=== PATIENT | male | born 1950 | race Caucasian/White ===

== ENCOUNTER 2017-10-26 17:25 | Inpatient (IN) | payer MEDICARE, OTHER ==
[~2017-10-26] VITALS: Ht 167.6 cm; Wt 86.0 kg
--- NOTE | 2017-10-26 17:51 | PD ---
HPI Chief Complaint: Chu Act Time Seen by Provider: 17:49 Travel History International Travel<30 days: No Contact w/Intl Traveler<30days: No History of Present Illness HPI 67-year-old male brought in from [facility] under the Chu act for refusing to eat and aggressive behavior towards staff and other residents. Patient has history of chronic low back pain, history of dysphasia, aphasia, atrial fibrillation, COPD, and major depressive disorder. Patient has been refusing to take his medications, and threatening to harm other residents and staff. He is attempted to hit the staff but they duck out of reach. His roommate has been fearful due to continued threats of harm, and he has thrown trays in place at the staff. Patient is unwilling to talk upon my exam. He has no known drug allergies. PFSH Past Medical History Arthritis: Yes Heart Rhythm Problems: No Cardiac Catheterization: No Cardiovascular Problems: No High Cholesterol: No Chest Pain: Yes (c/o suprasternal CP, MD notified) Congestive Heart Failure: No Diabetes: No Diminished Hearing: No Hypertension: Yes Myocardial Infarction: No Past Surgical History Appendectomy: Yes Coronary Artery Bypass Graft: No Social History Alcohol Use: Yes (IN REHAB) Tobacco Use: No Substance Use: No Allergies-Medications (Allergen,Severity, Reaction): Coded Allergies: No Known Allergies (Verified Adverse Reaction, Unknown, 10/26/17) Reported Meds & Prescriptions Reported Meds & Active Scripts Active Reported Milk of Magnesia Liq (Magnesium Hydroxide) 400 Mg/5 Ml Susp 30 Ml PO HS PRN Enema Disposable (Sodium Phosphates) 19 Gram-7 Gram/118 Ml Kelly 1 Applic RI PRN Dulcolax Supp (Bisacodyl) 10 Mg Supp 10 Mg RECTAL IN AM PRN Citroma Liq (Magnesium Citrate) 300 Ml Liq 296 Ml PO IN AM PRN Tylenol (Acetaminophen) 325 Mg Tab 650 Mg PO Q4H PRN Review of Systems ROS Limitations: Uncooperative, Refused, Combative Except as stated in HPI: all other systems reviewed are Neg Physical Exam Exam Limitations: Uncooperative, Combative Narrative GENERAL: Patient appears somewhat catatonic and refuses to speak or move. SKIN: Warm and dry. No obvious signs of trauma. HEAD: Atraumatic. Normocephalic. EYES: Pupils equal and round. No scleral icterus. No injection or drainage. ENT: No nasal bleeding or discharge. Mucous membranes pink and moist. Pharynx is clear. NECK: Trachea midline. CARDIOVASCULAR: Regular rate and rhythm. RESPIRATORY: No accessory muscle use. Clear to auscultation. Breath sounds equal bilaterally. MUSCULOSKELETAL: Extremities without clubbing, cyanosis, or edema. No obvious deformities. NEUROLOGICAL: Awake. No obvious cranial nerve deficits. Motor grossly within normal limits. Five out of 5 muscle strength in the arms and legs. Normal speech. PSYCHIATRIC: Unable to assess. Data Data Last Documented VS Vital Signs Date Time Temp Pulse Resp B/P (MAP) Pulse Ox O2 Delivery O2 Flow Rate FiO2 10/26/17 18:03 98.0 117 22 117/67 (84) 96 Orders Orders Complete Blood Count With Diff (10/26/17 18:06) Comprehensive Metabolic Panel (10/26/17 18:06) Thyroid Stimulating Hormone (10/26/17 18:06) Urinalysis - C+S If Indicated (10/26/17 18:06) Psych Screen (10/26/17 18:06) Haloperidol Inj (Haldol Inj) (10/26/17 18:15) Lorazepam Inj (Ativan Inj) (10/26/17 18:15) Drug Screen, Random Urine (10/26/17 18:06) Alcohol (Ethanol) (10/26/17 18:06) Diphenhydramine Inj (Benadryl Inj) (10/26/17 18:15) MDM Medical Decision Making Medical Screen Exam Complete: Yes Emergency Medical Condition: Yes Medical Record Reviewed: Yes Differential Diagnosis Chu act. Psychosis. Mood disorder. Narrative Course Patient appears medically stable at time of exam. Psychiatric labs ordered per protocol. Due to the patient's threatening nature and unwillingness to cooperate, medications are given including 1 mg lorazepam IM, 5 mg Haldol IM, and 50 mg diphenhydramine IM. Psychiatric screen is ordered. Condition: Stable Geovanny Murphy Oct 26, 2017 17:51
[2017-10-26 18:03] VITALS: BP 117/67; PULSE 117; RESP 22; TEMP 98; O2SAT 96
[2017-10-26] MEDS ORDERED: HALOPERIDOL LACTATE 5 MG/ML AMP IM ONE (18:15)
[2017-10-26] MEDS ORDERED: LORazepam 2 MG/ML VIAL IM ONE (18:15)
[2017-10-26] MEDS ORDERED: diphenhydrAMINE HCL 50 MG/ML VIAL IM ONE (18:15)
[2017-10-26] MEDS ORDERED: DULC10SU3 RECTAL (18:27)
[2017-10-26] MEDS ORDERED: CITRSOL3 PO (18:27)
[2017-10-26] MEDS ORDERED: TYLE325T PO (18:27)
[2017-10-26] MEDS ORDERED: MILKSUS PO (18:27)
[2017-10-26] MEDS ORDERED: ENEMENE5 PR (18:27)
[2017-10-26 19:09] LABS: AUTOMATED NEUTROPHIL # 4.8 TH/MM3 (1.8-7.7); BASOPHIL # 0.1 TH/MM3 (0-0.2); BASOPHIL % 0.8 % (0.0-2.0); EOSINOPHIL # 0.2 TH/MM3 (0-0.4); EOSINOPHIL % 2.4 % (0.0-4.0); HEMATOCRIT 49.3 % (39.0-51.0); HEMOGLOBIN 16.8 GM/DL (13.0-17.0); LYMPH % 30.1 % (9.0-44.0); LYMPHOCYTE # 2.7 TH/MM3 (1.0-4.8); MEAN CELL VOLUME 84.8 FL (80.0-100.0); MEAN CORPUSCULAR HEMOGLOBIN 28.8 PG (27.0-34.0); MEAN PLATELET VOLUME 10.7 FL (7.0-11.0); MONO % 12.5 % (0.0-8.0); MONOCYTE # 1.1 TH/MM3 (0-0.9); NEUT % 54.2 % (16.0-70.0); PLATELET COUNT 188 TH/MM3 (150-450); RED BLOOD COUNT 5.82 MIL/MM3 (4.50-5.90); WHITE BLOOD COUNT 8.9 TH/MM3 (4.0-11.0)
[2017-10-26 19:33] LABS: ALBUMIN 4.1 GM/DL (3.4-5.0); ALT (GPT) 11 U/L (12-78); AST (GOT) 12 U/L (15-37); BICARBONATE 21.7 MEQ/L (21.0-32.0); BLOOD UREA NITROGEN 14 MG/DL (7-18); CALCIUM 9.5 MG/DL (8.5-10.1); CHLORIDE 108 MEQ/L (98-107); CREATININE 0.81 MG/DL (0.60-1.30); GLOMERULAR FILTRATION RATE 95 ML/MIN (>89); GLUCOSE,RANDOM 75 MG/DL (74-106); SODIUM (NA) 140 MEQ/L (136-145)
[2017-10-26 19:43] LABS: ALKALINE PHOSPHATASE 111 U/L (45-117); TOTAL BILIRUBIN ADULT 0.7 MG/DL (0.2-1.0); TOTAL PROTEIN 7.6 GM/DL (6.4-8.2)
[2017-10-26 21:42] VITALS: BP 135/83; PULSE 67; RESP 18; TEMP 98.2; O2SAT 99
[2017-10-27 03:30] VITALS: BP_SYST 110; BP_SYST 121; BP_DIAS 72; BP_DIAS 78; PULSE 50; PULSE 70; RESP 18; TEMP 98.6; TEMP 99.1; O2SAT 100; O2SAT 98
[2017-10-27 06:33] LABS: BILIRUBIN, URINE NEG (NEG); BLOOD, URINE NEG (NEG); GLUCOSE,URINE NEG (NEG); KETONE, URINE TRACE mg/dL (NEG); MUCUS URINE FEW /lpf (OCC); NITRITE,URINE NEG (NEG); PH, URINE 5.5 (5.0-8.5); SQUAMOUS EPITHELIAL CELL URINE <1 /hpf (0-5); URINE COLOR YELLOW (YELLW/STRAW); URINE LEUKOCYTE ESTERASE NEG (NEG)
[2017-10-27 06:38] VITALS: BP 112/77; PULSE 95; RESP 17; TEMP 98.1; O2SAT 95
[2017-10-27] MEDS ORDERED: ALUMINUM/MAGNESIUM/SIMETH 30 ML CUP PO PRN (07:15)
[2017-10-27] MEDS ORDERED: LORazepam 1 MG TAB PO PRN (07:15)
[2017-10-27] MEDS ORDERED: LORazepam 2 MG/ML VIAL IM PRN ×2 (07:15)
[2017-10-27] MEDS ORDERED: MAGNESIUM HYDROXIDE SUSP 30 ML CUP PO PRN ×2 (07:15)
[2017-10-27] MEDS ORDERED: LORazepam 0.5 MG TAB PO PRN (07:15)
[2017-10-27] MEDS ORDERED: ACETAMINOPHEN 325 MG TAB PO PRN ×2 (07:15)
[2017-10-27] MEDS: NICOTINE 21 MG/24 HR PATCH T-DERMAL SCH (09:00)
[2017-10-27 11:09] VITALS: BP 129/84; PULSE 96; RESP 18; TEMP 97.9; O2SAT 96
[2017-10-27 15:25] VITALS: BP 129/58; PULSE 83; TEMP 98.4; O2SAT 97
[2017-10-28 05:20] VITALS: BP 135/79; PULSE 72; RESP 17; TEMP 97.9; O2SAT 99
[2017-10-28] MEDS: REMOVE OLD PATCH T-DERMAL SCH ×2 (08:33→08:34)
[2017-10-28] MEDS: NICOTINE 21 MG/24 HR PATCH T-DERMAL SCH (08:46)
--- NOTE | 2017-10-28 11:39 | MB ---
cc: Rgoe Meadows MD DATE OF CONSULT: CHIEF COMPLAINT: Medical management. HISTORY OF PRESENT ILLNESS: The patient is a 67-year-old male. I see him as an outpatient at [facility]. I was called by the facility two days ago as the patient was agitated and psychotic. He was trying to hit staff and threatening to the residents as well. They asked me to Chu Act the patient and I was in the process of doing so; however, the patient's behaviors escalated and law enforcement was called and then he was transported to [facility]. The patient here has not been cooperative. The staff reports that he has been very rude but he apparently has not become physical here per their reports or from what I can find in the chart. Of note, the patient had been on hospice there at the nursing facility. PAST MEDICAL HISTORY: 1. Chronic low back pain. 2. Atrial fibrillation. 3. Aphasia. 4. COPD. 5. Major depressive disorder. PAST SURGICAL HISTORY: Appendectomy. FAMILY HISTORY: Hypertension in mother and father, otherwise no other family medical history of significance that I can find. SOCIAL HISTORY: He lives in the long-term care side at [facility]. He was on active hospice until being transferred here. He smokes as much as he can there at the facility. There had been report of alcoholism; however, I have not been able to elicit history of substance abuse otherwise. ALLERGIES: NO KNOWN DRUG ALLERGIES. MEDICATIONS: At the [facility] - 1. Milk of magnesia p.r.n. 2. Enema p.r.n. 3. Dulcolax p.r.n. 4. Citroma. 5. Tylenol p.r.n. REVIEW OF SYSTEMS: He has been violent and threatening and here it appears he has not lashed out as of yet; however, after speaking with the staff, they are keeping a cautious distance. Negative 14-point review of systems otherwise. LABS: CBC normal. Creatinine 0.81, otherwise the CMP is normal. TSH 0.569. Urinalysis shows trace ketones. Toxicology otherwise negative for drug screen. PHYSICAL EXAMINATION: VITAL SIGNS: Temp 97.9, pulse 72, respirations 18, blood pressure 135/79, pulse ox 99% on room air. GENERAL: He is an alert male, sitting up. He is not responding to my questions purposefully. HEENT: No JVD. Normocephalic, atraumatic. CARDIOVASCULAR: Regular rate and rhythm. No murmurs, rubs, clicks or gallops. CHEST: Clear. ABDOMEN: Soft, nontender. EXTREMITIES: No edema. SKIN: Clear. NEURO: He is alert, however, will not answer further questions. Cranial nerves appear grossly intact. Strength is 3/5 in upper and lower extremities. ASSESSMENT: 1. Psychosis. 2. Atrial fibrillation. 3. Chronic obstructive pulmonary disease. 4. Active smoker. 5. Major depression. 6. Alcoholism. 7. Hypertension. PLAN: 1. Continue medications per Psychiatry which at this point are only as needed medications to control his psychosis. 2. Nicotine 21 mg patch. 3. BMP, A1C and lipid profile. 4. Disposition: Hopefully discharge back to [facility]. He had been on hospice and will likely reconsult them when he gets back to senior living. Thank you for the medical consultation. I will continue to follow him here and after he discharges as well. MD KARON Bach/RAMON/bobo , 10:21 AM , 10:59 AM
[2017-10-28] MEDS ORDERED: hydrOXYzine HCL 50 MG TAB PO PRN (16:45)
--- NOTE | 2017-10-28 17:12 | HHI.HP ---
Provisional Diagnosis Admission Date Oct 27, 2017 at 07:10 [place]. 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 Express and informed consent means consent voluntarily given in writing, by a competent person, after sufficient explanation and disclosure of the subject matter involved to enable the person to make a knowing and willful decision without any element of force, fraud, deceit, duress, or other form of constraint or coercion. This person is 18 years of age or older, is not now known to be incompetent to consent to treatment with a guardian advocate, and does not have a health care surrogate or proxy currently making medical treatment decisions. I have found this person to be one of the following: [] Competent to provide express and informed consent, as defined above, for voluntary admission to this facility and is competent to provide express and informed consent for treatment. He/she has the consistent capacity to make well reasoned, willful, and knowing decisions concerning his or her medical or mental health treatment. The person fully and consistently understands the purpose of the admission for examination/placement and is fully capable of personally exercising all rights assured under [place] Incompetent to provide express and informed consent to voluntary admission, and this is incompetent to provide express and informed consent to treatment. The person must be transferred to involuntary status and a petition for a guardian advocate filed with the Circuit Court. xxx[] Refusing to provide express and informed consent to voluntary admission but is competent to provide express and informed consent for treatment. The person must be discharged or transferred to involuntary status. Form shall be completed within 24 hours of a person's arrival at the receiving facility and filed in the clinical record of each person: 1. Admitted on a voluntary basis 2. Permitted to provide express and informed consent to his/her own treatment 3. Allowed to transfer from involuntary to voluntary status 4. Prior to permitting a person to consent to his or her own treatment after having been previously found incompetent to consent to treatment. History of Present Illness Capacity: Lacks Capacity HPI Patient is a 67-year-old white male who comes here under Chu act by the [employer] dated 10/26/17 at 5:30 PM that document reviewed essentially is stating at 5 PM officer responded to [address] (rehabilitation facility) the on duty nurse advised that Arnaud has been aggressive and verbally abusive toward all the staff members and is roommate. Arnaud is currently prescribed medications and has not been taking them accordingly Arnaud he has also been refusing to eat officer Giacomo believes without proper care or treatment by professional fissure will cause harm to himself or others. Patient seen screened in the ED antiestrogen negative bladder: Level negative. Of interest blood alcohol drawn around 2008 in our ED came back greater than 300. At the present time patient sitting quietly in his room nurse Madeleine present throughout session. Patient is a stockily built white male appears perhaps slightly younger than his stated age sitting, there with a somewhat perplexed look on his face. He is oriented to person disoriented to place time and situation. He acknowledges his memory issues. The vaguely nodular being somewhat upset at his custodial where is unable to identify the custodial. He does denies suicidality homicidality voices or visions. When asked about his alcohol use she tenderness mild and shrug his shoulders Marisol made vague agreement with past detoxes. Was unable to answer related to legal issues with drinking. At this time patient does meet criteria for acute inpatient psychiatric hospitalization of the Chu act I'll do first opinion request second opinion. I feel he does not of capacity thus I'll ask for healthcare surrogate and guardian advocate. We do have Dr. Abdiel brennan outpatient family practice physician consulting with us. Hopeless. Fairly short stay we can monitors his behaviors see if there is any dementia type sundowning that we can help address Review of Systems Constitutional: DENIES: Diaphoretic episodes, Fatigue, Fever, Weight gain, Weight loss, Chills, Dizziness, Change in appetite, Night Sweats Endocrine: DENIES: Heat/cold intolerance, Polydipsia, Polyuria, Polyphagia Eyes: DENIES: Blurred vision, Diplopia, Eye inflammation, Eye pain, Vision loss , Photosensitivity, Double Vision Ears, nose, mouth, throat: DENIES: Tinnitus, Hearing loss, Vertigo, Nasal discharge, Oral lesions, Throat pain, Hoarseness, Ear Pain, Running Nose, Epistaxis, Sinus Pain, Toothache, Odynophagia Respiratory: DENIES: Apneas, Cough, Snoring, Wheezing, Hemoptysis, Sputum production, Shortness of breath Cardiovascular: DENIES: Chest pain, Palpitations, Syncope, Dyspnea on Exertion , PND, Lower Extremity Edema, Orthopnea, Claudication Gastrointestinal: DENIES: Abdominal pain, Black stools, Bloody stools, Constipation, Diarrhea, Nausea, Vomiting, Difficulty Swallowing, Anorexia Genitourinary: DENIES: Sexual dysfunction, Urinary frequency, Urinary incontinence, Urgency, Hematuria, Dysuria, Nocturia, Penile Discharge, Testicular Pain, Testicular Swelling Musculoskeletal: DENIES: Joint pain, Muscle aches, Stiffness, Joint Swelling, Back pain, Neck pain Integumentary: DENIES: Abnormal pigmentation, Nail changes, Pruritus, Rash Hematologic/lymphatic: DENIES: Bruising, Lymphadenopathy Immunologic/allergic: DENIES: Eczema, Urticaria Neurologic: DENIES: Abnormal gait, Headache, Localized weakness, Paresthesias, Seizures, Speech Problems, Tremor, Poor Balance Psychiatric: COMPLAINS OF: Confusion, Agitation Past Psych History Psychological trauma history Moment this time Violence risk - others (6 mos) Patient quite aggressive verbally and intimidating towards other staff and residents at his assisted Violence risk - self (6 mos) Low to Moderate Substance Abuse History Drugs/Alcohol past 12 months Questionable Past Family Social History Coded Allergies: No Known Allergies (Verified Allergy, Unknown, 10/27/17) Reported Medications Magnesium Hydroxide Liq (Milk of Magnesia Liq) 400 Mg/5 Ml Susp, 30 ML PO HS Y for IF NO BM IN 3 DAYS, #1 BOTTLE 0 Refills 10/26/17 Sodium Phosphates (Enema Disposable) 19 Gram-7 Gram/118 Ml Kelly, 1 APPLIC VA Y for IF NO RESULTS 1 DAY AFTER SUPP 10/26/17 Bisacodyl Supp (Dulcolax Supp) 10 Mg Supp, 10 MG RECTAL IN AM Y for IF NO RESULTS FROM MILK OF MAG, #12 SUPP 0 Refills 10/26/17 Magnesium Citrate Liq (Citroma Liq) 300 Ml Liq, 296 ML PO IN AM Y for IF NO RESULTS FROM ENEMA 10/26/17 Acetaminophen (Tylenol) 325 Mg Tab, 650 MG PO Q4H Y for MILD PAIN/TEMP 100F OR ABOVE, TAB 0 Refills 10/26/17 Current Medications Medications (Trade) Dose Ordered Sig/Tyra Route Start Time Stop Time Status Last Admin (Tylenol) 650 mg Q4H PRN PO 10/27/17 07:15 (Milk Of Magnesia Liq) 30 ml HS PRN PO 10/27/17 07:15 (Ativan) 1 mg Q6H PRN PO 10/27/17 07:15 (Ativan Inj) 1 mg Q6H PRN IM 10/27/17 07:15 (Ativan) 0.5 mg Q12H PRN PO 10/27/17 07:15 (Ativan Inj) 0.5 mg Q12H PRN IM 10/27/17 07:15 (Tylenol) 650 mg Q4H PRN PO 10/27/17 07:15 (Milk Of Magnesia Liq) 30 ml DAILY PRN PO 10/27/17 07:15 (Mag-Al Plus Susp Liq) 30 ml Q6H PRN PO 10/27/17 07:15 (Habitrol 21 Mg Patch.24 Hr) 1 patch DAILY T-DERMAL 10/27/17 09:00 Miscellaneous Information 1 DAILY T-DERMAL 10/28/17 09:00 Miscellaneous Information 1 DAILY T-DERMAL 10/28/17 09:00 (Atarax) 50 mg Q6H PRN PO 10/28/17 16:45 UNV Family Psych History Unknown at this time Social History Patient lives in assisted Patient's Strengths (min. 2) Patient verbal labile access healthcare Physical Exam Patient seen screened in ED exam reviewed and agreed with. Patient sitting quietly in his room is in no acute distress, patient no respiratory distress, no complaints of abdominal pain. Patient moves all 4 extremities without difficulty Vital Signs Vital Signs Date Time Temp Pulse Resp B/P (MAP) Pulse Ox O2 Delivery O2 Flow Rate FiO2 10/28/17 05:20 97.9 72 17 135/79 (97) 99 10/27/17 06:38 Room Air I/O 10/28/17 10/28/17 10/29/17 08:00 16:00 00:00 Intake Total 0 ml 240 ml Balance 0 ml 240 ml Mental Status Examination Appearance: Disheveled Orientation: Person Motor Activity: Normal gait Speech: Pressured, Hesitant, Slow Language: Adequate Fund of Knowledge: Inadequate Attention and Concentration: Easily Distracted Memory: Impaired Mood: Sad, Other (restricted) Affect: Other (decreased range and intensity) Thought Process & Associations: Disorganized Thought Content: Other (disorganized) Hallucination Type: None (denies) Delusion Type: Paranoid (mildly) Suicidal Ideation: No Suicidal Plan: No Suicidal Intention: No Homicidal Ideation: No Homicidal Plan: No Homicidal Intention: No Insight: Poor Judgment: Poor Assessment & Plan Problem List: (1) Dementia associated with alcoholism ICD Codes: F10.27 - Alcohol dependence with alcohol-induced persisting dementia (2) DEMENTIA IN OTH DISEASES CLASSD ELSWHR W BEHAVIORAL DISTURB ICD Codes: F02.81 - DEMENTIA IN OTH DISEASES CLASSD ELSWHR W BEHAVIORAL DISTURB Assessment & Plan Estimated LOS: days James Camarena MD Oct 28, 2017 17:12
[2017-10-28 18:22] VITALS: BP 155/95; PULSE 79; RESP 18; TEMP 97.9; O2SAT 99
[2017-10-29 06:10] VITALS: BP 173/89; PULSE 62; RESP 17; TEMP 97.7; O2SAT 96
[2017-10-29] MEDS: REMOVE OLD PATCH T-DERMAL SCH ×2 (08:15)
[2017-10-29] MEDS: NICOTINE 21 MG/24 HR PATCH T-DERMAL SCH (08:15)
[2017-10-29 09:27] LABS: BICARBONATE 23.8 MEQ/L (21.0-32.0); BLOOD UREA NITROGEN 15 MG/DL (7-18); CALCIUM 8.5 MG/DL (8.5-10.1); CHLORIDE 106 MEQ/L (98-107); CHOLESTEROL 186 MG/DL (120-200); CHOLESTEROL/ HDL RATIO 4.49 RATIO; CREATININE 0.79 MG/DL (0.60-1.30); GLOMERULAR FILTRATION RATE 98 ML/MIN (>89); GLUCOSE,RANDOM 73 MG/DL (74-106); HDL CHOLESTEROL 41.4 MG/DL (40.0-60.0); LDL CHOLESTEROL 129 MG/DL (0-99); SODIUM (NA) 140 MEQ/L (136-145); TRIGLYCERIDES 76 MG/DL (42-150)
--- NOTE | 2017-10-29 10:34 | HHI.FPPN ---
Subjective Remarks NOT WANTING TO TALK MUCH D/W RN Objective Vitals Vital Signs Date Time Temp Pulse Resp B/P (MAP) Pulse Ox O2 Delivery O2 Flow Rate FiO2 10/29/17 06:10 97.7 62 17 173/89 (117) 96 10/28/17 18:22 97.9 79 18 155/95 (115) 99 I/O 10/28/17 10/28/17 10/28/17 10/29/17 10/29/17 10/29/17 07:00 15:00 23:00 07:00 15:00 23:00 Intake Total 0 ml 480 ml Balance 0 ml 480 ml Intake Oral 0 ml 480 ml # Voids 0 3 1 Result Diagram: 10/26/17 1900 10/29/17 0734 Objective Remarks GENERAL: SKIN: Warm and dry. HEAD: Atraumatic. Normocephalic. EYES: Pupils equal and round. No scleral icterus. No injection or drainage. ENT: No nasal bleeding or discharge. Mucous membranes pink and moist. NECK: Trachea midline. No JVD. CARDIOVASCULAR: Regular rate and rhythm. RESPIRATORY: No accessory muscle use. Clear to auscultation. Breath sounds equal bilaterally. GASTROINTESTINAL: Abdomen soft, non-tender, nondistended. Hepatic and splenic margins not palpable. MUSCULOSKELETAL: Extremities without clubbing, cyanosis, or edema. No obvious deformities. NEUROLOGICAL: Awake and alert. No obvious cranial nerve deficits. Motor grossly within normal limits. Five out of 5 muscle strength in the arms and legs. Normal speech. PSYCHIATRIC: Appropriate mood and affect; insight and judgment normal. Medications and IVs Current Medications Medications (Trade) Dose Ordered Sig/Tyra Route Start Time Stop Time Status Last Admin (Tylenol) 650 mg Q4H PRN PO 10/27/17 07:15 (Milk Of Magnesia Liq) 30 ml HS PRN PO 10/27/17 07:15 (Ativan) 1 mg Q6H PRN PO 10/27/17 07:15 Future Hold (Ativan Inj) 1 mg Q6H PRN IM 10/27/17 07:15 Future Hold (Ativan) 0.5 mg Q12H PRN PO 10/27/17 07:15 Future Hold (Ativan Inj) 0.5 mg Q12H PRN IM 10/27/17 07:15 Future Hold (Tylenol) 650 mg Q4H PRN PO 10/27/17 07:15 (Milk Of Magnesia Liq) 30 ml DAILY PRN PO 10/27/17 07:15 (Mag-Al Plus Susp Liq) 30 ml Q6H PRN PO 10/27/17 07:15 (Habitrol 21 Mg Patch.24 Hr) 1 patch DAILY T-DERMAL 10/27/17 09:00 Miscellaneous Information 1 DAILY T-DERMAL 10/28/17 09:00 Miscellaneous Information 1 DAILY T-DERMAL 10/28/17 09:00 (Atarax) 50 mg Q6H PRN PO 10/28/17 16:45 Future Hold A/P Assessment and Plan ASSESSMENT: 1. Psychosis. 2. Atrial fibrillation. 3. Chronic obstructive pulmonary disease. 4. Active smoker. 5. Major depression. 6. Alcoholism. 7. Hypertension. PLAN: -A1C PENDING -PRN CLONIDINE FOR HTN -PRN NEBS -Continue medications per Psychiatry which at this point are only as needed medications to control his psychosis. -Nicotine 21 mg patch. -Disposition: Hopefully discharge back to [facility]. He had been on hospice and will likely reconsult them when he gets back to [facility]. Thank you for the medical consultation. I will continue to follow him here and after he discharges as well. Roge Meadows MD Oct 29, 2017 10:34
[2017-10-29] MEDS ORDERED: cloNIDine HCL 0.1 MG TAB PO PRN (10:45)
[2017-10-29] MEDS ORDERED: RESP: ALBUTEROL CONC 2.5 MG/0.5 ML NEB NEB PRN (10:45)
--- NOTE | 2017-10-29 13:20 | HHI.PYPN ---
Subjective Remarks Patient seen in his room with floor staff, chart review, patient discussed with nurse. Patient remains diffusely confused to place situation and time, there is some underlying mild irritability vigilance with this. We'll add Seroquel 25 mg noon and 6 PM and 10 PM regimen Review of Systems Except as stated in HPI: all other systems reviewed are Neg Mental Status Examination Appearance: Disheveled Orientation: Person Motor Activity: Normal gait Speech: Pressured, Hesitant, Slow Language: Adequate Fund of Knowledge: Inadequate Attention and Concentration: Easily Distracted Memory: Impaired Mood: Sad, Other Affect: Other Thought Process & Associations: Disorganized Thought Content: Other Hallucination Type: None Delusion Type: Paranoid Suicidal Ideation: No Suicidal Plan: No Suicidal Intention: No Homicidal Ideation: No Homicidal Plan: No Homicidal Intention: No Insight: Poor Judgment: Poor Results Labs Test 10/29/17 07:34 Blood Urea Nitrogen 15 MG/DL Creatinine 0.79 MG/DL Random Glucose 73 MG/DL Calcium Level 8.5 MG/DL Sodium Level 140 MEQ/L Potassium Level 3.8 MEQ/L Chloride Level 106 MEQ/L Carbon Dioxide Level 23.8 MEQ/L Anion Gap 10 MEQ/L Estimat Glomerular Filtration Rate 98 ML/MIN Triglycerides Level 76 MG/DL Cholesterol Level 186 MG/DL LDL Cholesterol 129 MG/DL HDL Cholesterol 41.4 MG/DL Cholesterol/HDL Ratio 4.49 RATIO Vitals/IOs Vital Signs Date Time Temp Pulse Resp B/P (MAP) Pulse Ox O2 Delivery O2 Flow Rate FiO2 10/29/17 06:10 97.7 62 17 173/89 (117) 96 10/27/17 06:38 Room Air Assessment & Plan Problem List: (1) Dementia associated with alcoholism ICD Codes: F10.27 - Alcohol dependence with alcohol-induced persisting dementia (2) DEMENTIA IN OTH DISEASES CLASSD ELSWHR W BEHAVIORAL DISTURB ICD Codes: F02.81 - 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 Inpt. At this time patient would decompensated placed a lower level of care Discharge Planning To be determined James Camarena MD Oct 29, 2017 13:20
--- NOTE | 2017-10-29 13:29 | PD.PSY.CON ---
Provisional Diagnosis Admission Date Oct 27, 2017 at 07:10 [place]. Dementia associated with alcoholism F10.27 dementia associated with other problem FiO2.81 History of Present Illness Service Psychiatry Consult Requested By Psychiatry Reason for Consult Second opinion Primary Care Physician Roge Meadows MD HPI Patient is a 67-year-old white male who comes here under [place] act by the [place] [employer] dated 10/26/17 at 5:30 PM that document reviewed essentially is stating at 5 PM officer [facility] [address] (rehabilitation facility) the on duty nurse advised that Arnaud has been aggressive and verbally abusive toward all the staff members and is roommate. Arnaud is currently prescribed medications and has not been taking them accordingly Arnaud he has also been refusing to eat officer Giacomo believes without proper care or treatment by professional fissure will cause harm to himself or others. Patient seen screened in the ED antiestrogen negative bladder: Level negative. Of interest blood alcohol drawn around 2008 in our ED came back greater than 300. At the present time patient sitting quietly in his room nurse Madeleine present throughout session. Patient is a stockily built white male appears perhaps slightly younger than his stated age sitting, there with a somewhat perplexed look on his face. He is oriented to person disoriented to place time and situation. He acknowledges his memory issues. The vaguely nodular being somewhat upset at his custodial where is unable to identify the custodial. He does denies suicidality homicidality voices or visions. When asked about his alcohol use she tenderness mild and shrug his shoulders Marisol made vague agreement with past detoxes. Was unable to answer related to legal issues with drinking. At this time patient does meet criteria for acute inpatient psychiatric hospitalization of the [place] act I'll do first opinion request second opinion. I feel he does not of capacity thus I'll ask for healthcare surrogate and guardian advocate. We do have Dr. Abdiel brennan outpatient family practice physician consulting with us. Hopeless. Fairly short stay we can monitors his behaviors see if there is any dementia type sundowning that we can help address. On psychiatric evaluation wasn't completed today, the patient is irritable, poorly cooperative, he stated that he does want to talk anymore. Patient does not remember the reason his in the hospital. Patient is very disoriented, just oriented in person. Reports angry mood, he says that he doesn't want to be here. He denies suicidal and homicidal ideation, he denies visual and auditory hallucinations. Past Family Social History Coded Allergies: No Known Allergies (Verified Allergy, Unknown, 10/27/17) Reported Medications Magnesium Hydroxide Liq (Milk of Magnesia Liq) 400 Mg/5 Ml Susp, 30 ML PO HS Y for IF NO BM IN 3 DAYS, #1 BOTTLE 0 Refills 10/26/17 Sodium Phosphates (Enema Disposable) 19 Gram-7 Gram/118 Ml Kelly, 1 APPLIC [facility] Y for IF NO RESULTS 1 DAY AFTER SUPP 10/26/17 Bisacodyl Supp (Dulcolax Supp) 10 Mg Supp, 10 MG RECTAL IN AM Y for IF NO RESULTS FROM MILK OF MAG, #12 SUPP 0 Refills 10/26/17 Magnesium Citrate Liq (Citroma Liq) 300 Ml Liq, 296 ML PO IN AM Y for IF NO RESULTS FROM ENEMA 10/26/17 Acetaminophen (Tylenol) 325 Mg Tab, 650 MG PO Q4H Y for MILD PAIN/TEMP 100F OR ABOVE, TAB 0 Refills 10/26/17 Current Medications Medications (Trade) Dose Ordered Sig/Tyra Route Start Time Stop Time Status Last Admin (Tylenol) 650 mg Q4H PRN PO 10/27/17 07:15 (Milk Of Magnesia Liq) 30 ml HS PRN PO 10/27/17 07:15 (Ativan) 1 mg Q6H PRN PO 10/27/17 07:15 Future Hold (Ativan Inj) 1 mg Q6H PRN IM 10/27/17 07:15 Future Hold (Ativan) 0.5 mg Q12H PRN PO 10/27/17 07:15 Future Hold (Ativan Inj) 0.5 mg Q12H PRN IM 10/27/17 07:15 Future Hold (Tylenol) 650 mg Q4H PRN PO 10/27/17 07:15 (Milk Of Magnesia Liq) 30 ml DAILY PRN PO 10/27/17 07:15 (Mag-Al Plus Susp Liq) 30 ml Q6H PRN PO 10/27/17 07:15 (Habitrol 21 Mg Patch.24 Hr) 1 patch DAILY T-DERMAL 10/27/17 09:00 Miscellaneous Information 1 DAILY T-DERMAL 10/28/17 09:00 Miscellaneous Information 1 DAILY T-DERMAL 10/28/17 09:00 (Atarax) 50 mg Q6H PRN PO 10/28/17 16:45 Future Hold (Albuterol Concentrated Neb) 2.5 mg Q4HR NEB PRN NEB 10/29/17 10:45 (Catapres) 0.1 mg Q6H PRN PO 10/29/17 10:45 (SEROquel) 25 mg DAILY@1200,1600,2200 PO 10/29/17 16:00 Patient's Strengths (min. 2) Patient verbal labile access healthcare Physical Exam Vital Signs Vital Signs Date Time Temp Pulse Resp B/P (MAP) Pulse Ox O2 Delivery O2 Flow Rate FiO2 10/29/17 06:10 97.7 62 17 173/89 (117) 96 10/27/17 06:38 Room Air Lab Results Test 10/29/17 07:34 Blood Urea Nitrogen 15 MG/DL Creatinine 0.79 MG/DL Random Glucose 73 MG/DL Calcium Level 8.5 MG/DL Sodium Level 140 MEQ/L Potassium Level 3.8 MEQ/L Chloride Level 106 MEQ/L Carbon Dioxide Level 23.8 MEQ/L Anion Gap 10 MEQ/L Estimat Glomerular Filtration Rate 98 ML/MIN Triglycerides Level 76 MG/DL Cholesterol Level 186 MG/DL LDL Cholesterol 129 MG/DL HDL Cholesterol 41.4 MG/DL Cholesterol/HDL Ratio 4.49 RATIO Mental Status Examination Appearance: Disheveled Orientation: Person Motor Activity: Normal gait Speech: Pressured, Hesitant, Slow Language: Adequate Fund of Knowledge: Inadequate Attention and Concentration: Easily Distracted Memory: Impaired Mood: Sad, Other Affect: Other Thought Process & Associations: Disorganized Thought Content: Other Hallucination Type: None Delusion Type: Paranoid Suicidal Ideation: No Suicidal Plan: No Suicidal Intention: No Homicidal Ideation: No Homicidal Plan: No Homicidal Intention: No Insight: Poor Judgment: Poor Assessment & Plan Problem List: (1) Dementia associated with alcoholism ICD Codes: F10.27 - Alcohol dependence with alcohol-induced persisting dementia (2) DEMENTIA IN OTH DISEASES CLASSD ELSWHR W BEHAVIORAL DISTURB ICD Codes: F02.81 - DEMENTIA IN OTH DISEASES CLASSD ELSWHR W BEHAVIORAL DISTURB Assessment & Plan: I have seen and examined this patient, reviewed the documentation, I agree and concur with Dr. Camarena's assessment and plan. Assessment & Plan Estimated LOS: days Gian Hui MD Oct 29, 2017 13:29
[2017-10-29 16:18] LABS: HEMOGLOBIN A1C 5.8 % (4.3-6.0)
[2017-10-29 17:35] VITALS: BP 152/96; PULSE 80; RESP 17; TEMP 97.3; O2SAT 97
[2017-10-30 06:00] VITALS: BP 162/74; PULSE 54; RESP 18; TEMP 97.5; O2SAT 98
[2017-10-30] MEDS: NICOTINE 21 MG/24 HR PATCH T-DERMAL SCH (08:34)
[2017-10-30] MEDS: REMOVE OLD PATCH T-DERMAL SCH ×2 (08:35)
--- NOTE | 2017-10-30 10:46 | HHI.FPPN ---
Subjective Remarks AGITATED TODAY ANGRY D/W RN Objective Vitals Vital Signs Date Time Temp Pulse Resp B/P (MAP) Pulse Ox O2 Delivery O2 Flow Rate FiO2 10/30/17 06:00 97.5 54 18 162/74 (103) 98 10/29/17 17:35 97.3 80 17 152/96 (114) 97 I/O 10/29/17 10/29/17 10/29/17 10/30/17 10/30/17 10/30/17 07:00 15:00 23:00 07:00 15:00 23:00 Intake Total 1200 ml 240 ml Balance 1200 ml 240 ml Intake Oral 1200 ml 240 ml # Voids 1 2 1 Result Diagram: 10/26/17 1900 10/29/17 0734 Objective Remarks GENERAL: SKIN: Warm and dry. HEAD: Atraumatic. Normocephalic. EYES: Pupils equal and round. No scleral icterus. No injection or drainage. ENT: No nasal bleeding or discharge. Mucous membranes pink and moist. NECK: Trachea midline. No JVD. CARDIOVASCULAR: Regular rate and rhythm. RESPIRATORY: No accessory muscle use. Clear to auscultation. Breath sounds equal bilaterally. GASTROINTESTINAL: Abdomen soft, non-tender, nondistended. Hepatic and splenic margins not palpable. MUSCULOSKELETAL: Extremities without clubbing, cyanosis, or edema. No obvious deformities. NEUROLOGICAL: Awake and alert. No obvious cranial nerve deficits. Motor grossly within normal limits. Five out of 5 muscle strength in the arms and legs. Normal speech. PSYCHIATRIC: Appropriate mood and affect; insight and judgment normal. Medications and IVs Current Medications Medications (Trade) Dose Ordered Sig/Tyra Route Start Time Stop Time Status Last Admin (Tylenol) 650 mg Q4H PRN PO 10/27/17 07:15 (Milk Of Magnesia Liq) 30 ml HS PRN PO 10/27/17 07:15 (Ativan) 1 mg Q6H PRN PO 10/27/17 07:15 Future Hold (Ativan Inj) 1 mg Q6H PRN IM 10/27/17 07:15 Future Hold (Ativan) 0.5 mg Q12H PRN PO 10/27/17 07:15 Future Hold (Ativan Inj) 0.5 mg Q12H PRN IM 10/27/17 07:15 Future Hold (Tylenol) 650 mg Q4H PRN PO 10/27/17 07:15 (Milk Of Magnesia Liq) 30 ml DAILY PRN PO 10/27/17 07:15 (Mag-Al Plus Susp Liq) 30 ml Q6H PRN PO 10/27/17 07:15 (Habitrol 21 Mg Patch.24 Hr) 1 patch DAILY T-DERMAL 10/27/17 09:00 Miscellaneous Information 1 DAILY T-DERMAL 10/28/17 09:00 Miscellaneous Information 1 DAILY T-DERMAL 10/28/17 09:00 (Atarax) 50 mg Q6H PRN PO 10/28/17 16:45 Future Hold (Albuterol Concentrated Neb) 2.5 mg Q4HR NEB PRN NEB 10/29/17 10:45 (Catapres) 0.1 mg Q6H PRN PO 10/29/17 10:45 (SEROquel) 25 mg DAILY@1200,1600,2200 PO 10/29/17 16:00 Future hold A/P Assessment and Plan ASSESSMENT: 1. Psychosis. 2. Atrial fibrillation. 3. Chronic obstructive pulmonary disease. 4. Active smoker. 5. Major depression. 6. Alcoholism. 7. Hypertension. PLAN: -PRN CLONIDINE FOR HTN -PRN NEBS -Continue medications per Psychiatry -Nicotine 21 mg patch. -Disposition: Hopefully discharge back to [facility]. He had been on hospice and will likely reconsult them when he gets back to residential. Thank you for the medical consultation. I will continue to follow him here and after he discharges as well. Roge Meadows MD Oct 30, 2017 10:46
--- NOTE | 2017-10-30 11:15 | HHI.PYPN ---
Subjective Remarks Patient seen in his room with nurse Juliet, patient continues somewhat vigilant mildly irritable acknowledging, and being frustrated by his cognitive deficits and lack of memory. Is showing some noncompliance with medication, I have encouraged compliance with that. However it appears she is willing to consider referral to residential type facility. Continue to work on that at this time. For now continue treatment Review of Systems Except as stated in HPI: all other systems reviewed are Neg Mental Status Examination Appearance: Disheveled Orientation: Person Motor Activity: Normal gait Speech: Pressured, Hesitant, Slow Language: Adequate Fund of Knowledge: Inadequate Attention and Concentration: Easily Distracted Memory: Impaired Mood: Sad, Other Affect: Other Thought Process & Associations: Disorganized Thought Content: Other Hallucination Type: None Delusion Type: Paranoid Suicidal Ideation: No Suicidal Plan: No Suicidal Intention: No Homicidal Ideation: No Homicidal Plan: No Homicidal Intention: No Insight: Poor Judgment: Poor Results Vitals/IOs Vital Signs Date Time Temp Pulse Resp B/P (MAP) Pulse Ox O2 Delivery O2 Flow Rate FiO2 10/30/17 06:00 97.5 54 18 162/74 (103) 98 10/27/17 06:38 Room Air Intake and Output 10/30/17 10/30/17 10/31/17 08:00 16:00 00:00 Intake Total 240 ml Balance 240 ml Assessment & Plan Problem List: (1) Dementia associated with alcoholism ICD Codes: F10.27 - Alcohol dependence with alcohol-induced persisting dementia (2) DEMENTIA IN OTH DISEASES CLASSD ELSWHR W BEHAVIORAL DISTURB ICD Codes: F02.81 - DEMENTIA IN OTH DISEASES CLASSD ELSWHR W BEHAVIORAL DISTURB Assessment & Plan Estimated LOS: days patient continues confused and demented, continue somewhat isolated, while no significant behavioral problems he gives the appearance of being vigilant with some risk of behavioral issues. Patient scheduled for [place] tomorrow Justification for Cont. Inpt. At this time patient will decompensate of placed in a lower level of care Discharge Planning Need to find appropriate placement for this gentleman James Camarena MD Oct 30, 2017 11:15
[2017-10-30 17:34] VITALS: BP 155/88; PULSE 77; RESP 16; TEMP 97.9; O2SAT 96
[2017-10-31 05:46] VITALS: BP 111/62; PULSE 64; RESP 16; TEMP 97.8; O2SAT 96
[2017-10-31] MEDS: NICOTINE 21 MG/24 HR PATCH T-DERMAL SCH (09:05)
[2017-10-31] MEDS: REMOVE OLD PATCH T-DERMAL SCH ×2 (09:05→09:06)
[2017-10-31 09:25] VITALS: BP 111/62; PULSE 64; RESP 16; TEMP 97.8; O2SAT 96
--- NOTE | 2017-10-31 12:11 | HHI.PYPN ---
Subjective Remarks Patient seen in [place], retained by [employer], patient continues diffusely confused disoriented his cognitive deficits no change. Not quite is vigilant and court as he had been prior. For now continue treatment Review of Systems Except as stated in HPI: all other systems reviewed are Neg Mental Status Examination Appearance: Disheveled Orientation: Person Motor Activity: Normal gait Speech: Pressured, Hesitant, Slow Language: Adequate Fund of Knowledge: Inadequate Attention and Concentration: Easily Distracted Memory: Impaired Mood: Sad, Other Affect: Other Thought Process & Associations: Disorganized Thought Content: Other Hallucination Type: None Delusion Type: Paranoid Suicidal Ideation: No Suicidal Plan: No Suicidal Intention: No Homicidal Ideation: No Homicidal Plan: No Homicidal Intention: No Insight: Poor Judgment: Poor Results Vitals/IOs Vital Signs Date Time Temp Pulse Resp B/P (MAP) Pulse Ox O2 Delivery O2 Flow Rate FiO2 10/31/17 09:25 97.8 64 16 111/62 (78) 96 Intake and Output 10/31/17 10/31/17 11/01/17 08:00 16:00 00:00 Intake Total 720 ml 600 ml Balance 720 ml 600 ml Assessment & Plan Problem List: (1) Dementia associated with alcoholism ICD Codes: F10.27 - Alcohol dependence with alcohol-induced persisting dementia (2) DEMENTIA IN OTH DISEASES CLASSD ELSWHR W BEHAVIORAL DISTURB ICD Codes: F02.81 - DEMENTIA IN OTH DISEASES CLASSD ELSWHR W BEHAVIORAL DISTURB Assessment & Plan Estimated LOS: days we'll wait permission from health care surrogate/guarded advocate to initiate medication treatment. Justification for Cont. Inpt. This time patient will decompensate of placed in a lower level of care Discharge Planning Placement will need to be determined once patient response to medication Request HC Surrog/Guard Advoc?: Yes James Camarena MD Oct 31, 2017 12:11
[2017-10-31] MEDS: QUEtiapine FUMARATE 25 MG TAB PO SCH ×2 (15:39→22:12)
--- NOTE | 2017-10-31 16:31 | HHI.FPPN ---
Subjective Remarks AGITATED AGAIN APPEARS MENACING D/W RN Objective Vitals Vital Signs Date Time Temp Pulse Resp B/P (MAP) Pulse Ox O2 Delivery O2 Flow Rate FiO2 10/31/17 09:25 97.8 64 16 111/62 (78) 96 10/31/17 05:46 97.8 64 16 111/62 (78) 96 10/30/17 17:34 97.9 77 16 155/88 (110) 96 I/O 10/30/17 10/30/17 10/30/17 10/31/17 10/31/17 10/31/17 07:00 15:00 23:00 07:00 15:00 23:00 Intake Total 960 ml 240 ml 720 ml 1220 ml Balance 960 ml 240 ml 720 ml 1220 ml Intake Oral 960 ml 240 ml 720 ml 1220 ml # Voids 1 3 3 Result Diagram: 10/29/17 0734 Objective Remarks GENERAL: SKIN: Warm and dry. HEAD: Atraumatic. Normocephalic. EYES: Pupils equal and round. No scleral icterus. No injection or drainage. ENT: No nasal bleeding or discharge. Mucous membranes pink and moist. NECK: Trachea midline. No JVD. CARDIOVASCULAR: Regular rate and rhythm. RESPIRATORY: No accessory muscle use. Clear to auscultation. Breath sounds equal bilaterally. GASTROINTESTINAL: Abdomen soft, non-tender, nondistended. Hepatic and splenic margins not palpable. MUSCULOSKELETAL: Extremities without clubbing, cyanosis, or edema. No obvious deformities. NEUROLOGICAL: Awake and alert. No obvious cranial nerve deficits. Motor grossly within normal limits. Five out of 5 muscle strength in the arms and legs. Normal speech. PSYCHIATRIC: Appropriate mood and affect; insight and judgment normal. Medications and IVs Current Medications Medications (Trade) Dose Ordered Sig/Tyra Route Start Time Stop Time Status Last Admin (Tylenol) 650 mg Q4H PRN PO 10/27/17 07:15 (Milk Of Magnesia Liq) 30 ml HS PRN PO 10/27/17 07:15 (Ativan) 1 mg Q6H PRN PO 10/27/17 07:15 Future Hold (Ativan Inj) 1 mg Q6H PRN IM 10/27/17 07:15 Future Hold (Ativan) 0.5 mg Q12H PRN PO 10/27/17 07:15 Future Hold (Ativan Inj) 0.5 mg Q12H PRN IM 10/27/17 07:15 Future Hold (Tylenol) 650 mg Q4H PRN PO 10/27/17 07:15 (Milk Of Magnesia Liq) 30 ml DAILY PRN PO 10/27/17 07:15 (Mag-Al Plus Susp Liq) 30 ml Q6H PRN PO 10/27/17 07:15 (Habitrol 21 Mg Patch.24 Hr) 1 patch DAILY T-DERMAL 10/27/17 09:00 Miscellaneous Information 1 DAILY T-DERMAL 10/28/17 09:00 Miscellaneous Information 1 DAILY T-DERMAL 10/28/17 09:00 (Atarax) 50 mg Q6H PRN PO 10/28/17 16:45 Future Hold (Albuterol Concentrated Neb) 2.5 mg Q4HR NEB PRN NEB 10/29/17 10:45 (Catapres) 0.1 mg Q6H PRN PO 10/29/17 10:45 (SEROquel) 25 mg DAILY@1200,1600,2200 PO 10/29/17 16:00 Future hold 10/31/17 15:39 A/P Assessment and Plan ASSESSMENT: 1. Psychosis. 2. Atrial fibrillation. 3. Chronic obstructive pulmonary disease. 4. Active smoker. 5. Major depression. 6. Alcoholism. 7. Hypertension. PLAN: -PRN CLONIDINE FOR HTN -PRN NEBS -Continue medications per Psychiatry -Nicotine 21 mg patch. -Disposition: Hopefully discharge back to [facility]. He had been on hospice and will likely reconsult them when he gets back to group home. Thank you for the medical consultation. I will continue to follow him here and after he discharges as well. Roge Meadows MD Oct 31, 2017 16:31
[2017-10-31 18:02] VITALS: BP 133/90; PULSE 75; RESP 18; TEMP 97.9; O2SAT 99
[2017-11-01 07:10] VITALS: BP 148/74; PULSE 91; RESP 15; TEMP 97.2; O2SAT 95
[2017-11-01] MEDS: NICOTINE 21 MG/24 HR PATCH T-DERMAL SCH (10:09)
[2017-11-01] MEDS: REMOVE OLD PATCH T-DERMAL SCH ×2 (10:09→10:10)
[2017-11-01] MEDS ORDERED: SERO25TA PO (10:13)
--- NOTE | 2017-11-01 10:21 | HHI.DS ---
Psychiatry Discharge Summary Inpatient Psychiatric care?: Yes Advance Directive: No Reason Not Provided: Due to Patient Condition Mental Health AdvanceDirective: No Health Care Proxy: No Admission Admission Date Oct 27, 2017 at 07:10 Admission Diagnosis: (1) DEMENTIA IN OTH DISEASES CLASSD ELSWHR W BEHAVIORAL DISTURB ICD Code: F02.81 - DEMENTIA IN OTH DISEASES CLASSD ELSWHR W BEHAVIORAL DISTURB (2) Dementia associated with alcoholism ICD Code: F10.27 - Alcohol dependence with alcohol-induced persisting dementia Brief History Patient is a 67-year-old white male who comes here under [place] act by the [place] [employer] dated 10/26/17 at 5:30 PM that document reviewed essentially is stating at 5 PM [facility]) the on duty nurse advised that Arnaud has been aggressive and verbally abusive toward all the staff members and is roommate. Arnaud is currently prescribed medications and has not been taking them accordingly Arnaud he has also been refusing to eat officer Giacomo believes without proper care or treatment by professional fissure will cause harm to himself or others. Patient seen screened in the ED antiestrogen negative bladder: Level negative. Of interest blood alcohol drawn around 2008 in our ED came back greater than 300. At the present time patient sitting quietly in his room nurse Madeleine present throughout session. Patient is a stockily built white male appears perhaps slightly younger than his stated age sitting, there with a somewhat perplexed look on his face. He is oriented to person disoriented to place time and situation. He acknowledges his memory issues. The vaguely nodular being somewhat upset at his snf where is unable to identify the snf. He does denies suicidality homicidality voices or visions. When asked about his alcohol use she tenderness mild and shrug his shoulders Marisol made vague agreement with past detoxes. Was unable to answer related to legal issues with drinking. At this time patient does meet criteria for acute inpatient psychiatric hospitalization of the [place] act I'll do first opinion request second opinion. I feel he does not of capacity thus I'll ask for healthcare surrogate and guardian advocate. We do have Dr. Abdiel brennan outpatient family practice physician consulting with us. Hopeless. Fairly short stay we can monitors his behaviors see if there is any dementia type sundowning that we can help address. On psychiatric evaluation wasn't completed today, the patient is irritable, poorly cooperative, he stated that he does want to talk anymore. Patient does not remember the reason his in the hospital. Patient is very disoriented, just oriented in person. Reports angry mood, he says that he doesn't want to be here. He denies suicidal and homicidal ideation, he denies visual and auditory hallucinations. Tobacco Use In Past 30 Days: No Tobacco Past 30 Days Alcohol Use: Never Hospital Course Patient's hospital stay was uneventful, patient was no behavioral problems, he did isolate somewhat. There is some mild vigilance just his overall attitude. The denies suicidality homicidality voices or visions. Patient was retained by [facility], medication has been started. Patient is been accepted at [facility]. At this time I feel patient has reached his maximum benefit of this hospitalization. Patient to be discharged today to above facility Rx 1 month, follow-up mental health services through that facility Results Blood Pressure 148 / 74 Vital Signs Date Time Temp Pulse Resp B/P (MAP) Pulse Ox O2 Delivery O2 Flow Rate FiO2 11/01/17 07:10 97.2 91 15 148/74 (98) 95 Laboratory Results Test 10/29/17 07:34 Cholesterol Level 186 MG/DL (120-200) HDL Cholesterol 41.4 MG/DL (40.0-60.0) Hemoglobin A1c 5.8 % (4.3-6.0) LDL Cholesterol 129 MG/DL (0-99) Triglycerides Level 76 MG/DL (42-150) Summary of Procedures None done Pending results at discharge: No Medications # of Antipsychotic meds at D/C: 1 Approp Antipsych med options 1 - Minimum of three failed multiple trials of monotherapy. 2 - Documented plan to taper to monotherapy due to previous use of multiple meds OR cross-taper in progress at D/C. 3 - Documentation of augmentation of Clozapine. 4 - Justification other than those listed in allowable values 1-3, document here : Discharge Discharge Date: Nov 01, 2017 Discharge Diagnosis: (1) DEMENTIA IN OTH DISEASES CLASSD ELSWHR W BEHAVIORAL DISTURB Diagnosis: Principal ICD Code: F02.81 - DEMENTIA IN OTH DISEASES CLASSD ELSWHR W BEHAVIORAL DISTURB (2) Dementia associated with alcoholism Diagnosis: Principal ICD Code: F10.27 - Alcohol dependence with alcohol-induced persisting dementia Pt Condition on Discharge: Stable Discharge Disposition: Discharge to SNF Discharge Instructions Diet Instructions: As Tolerated, No Restrictions Activities you can perform: Regular-No Restrictions Scheduled Appointment: At Facility [facility] Discharge Time > 30 minutes Mental Status Examination Appearance: Disheveled Orientation: Person Motor Activity: Normal gait Speech: Pressured, Hesitant, Slow Language: Adequate Fund of Knowledge: Inadequate Attention and Concentration: Easily Distracted Memory: Impaired Mood: Sad, Other Affect: Other Thought Process & Associations: Disorganized Thought Content: Other Hallucination Type: None Delusion Type: Paranoid Suicidal Ideation: No Suicidal Plan: No Suicidal Intention: No Homicidal Ideation: No Homicidal Plan: No Homicidal Intention: No Insight: Poor Judgment: Poor Discharge/Advance Care Plan Health Problems: (1) Dementia associated with alcoholism (2) DEMENTIA IN OTH DISEASES CLASSD ELSWHR W BEHAVIORAL DISTURB Goals to promote your health * To prevent worsening of your condition and complications * To maintain your health at the optimal level Directions to meet your goals Take your medications as prescribed Follow your dietary instruction Follow activity as directed Keep your appointments as scheduled Take your immunizations and boosters as scheduled If your symptoms worsen call your PCP, if no PCP go to Urgent Care Center or Emergency Room For 18/03 questions related to your inpatient stay or results of tests pending at discharge, please contact Dr. James Camarena at Smoking is Dangerous to Your Health. Avoid second hand smoking James Camarena MD Nov 01, 2017 10:21
--- NOTE | 2017-11-01 10:49 | HHI.FPPN ---
Objective Vitals Vital Signs Date Time Temp Pulse Resp B/P (MAP) Pulse Ox O2 Delivery O2 Flow Rate FiO2 11/01/17 07:10 97.2 91 15 148/74 (98) 95 10/31/17 18:02 97.9 75 18 133/90 (104) 99 I/O 10/31/17 10/31/17 10/31/17 11/01/17 11/01/17 11/01/17 07:00 15:00 23:00 07:00 15:00 23:00 Intake Total 720 ml 1220 ml 600 ml Balance 720 ml 1220 ml 600 ml Intake Oral 720 ml 1220 ml 600 ml # Voids 3 1 1 Result Diagram: 10/29/17 0734 Objective Remarks GENERAL: SKIN: Warm and dry. HEAD: Atraumatic. Normocephalic. EYES: Pupils equal and round. No scleral icterus. No injection or drainage. ENT: No nasal bleeding or discharge. Mucous membranes pink and moist. NECK: Trachea midline. No JVD. CARDIOVASCULAR: Regular rate and rhythm. RESPIRATORY: No accessory muscle use. Clear to auscultation. Breath sounds equal bilaterally. GASTROINTESTINAL: Abdomen soft, non-tender, nondistended. Hepatic and splenic margins not palpable. MUSCULOSKELETAL: Extremities without clubbing, cyanosis, or edema. No obvious deformities. NEUROLOGICAL: Awake and alert. No obvious cranial nerve deficits. Motor grossly within normal limits. Five out of 5 muscle strength in the arms and legs. Normal speech. PSYCHIATRIC: Appropriate mood and affect; insight and judgment normal. A/P Assessment and Plan ASSESSMENT: 1. Psychosis. 2. Atrial fibrillation. 3. Chronic obstructive pulmonary disease. 4. Active smoker. 5. Major depression. 6. Alcoholism. 7. Hypertension. PLAN: -PRN CLONIDINE FOR HTN -PRN NEBS -Continue medications per Psychiatry -Nicotine 21 mg patch. -Disposition: DC TO [facility] PEND[facility] TODAY Thank you for the medical consultation. I will continue to follow him here and after he discharges as well. Roge Meadows MD Nov 01, 2017 10:49
== END 2017-11-01 11:30 | disposition short-term general hospital (02) | DRG 897 ==
LOC: NEPD 17:25 → NEDA 10-27 07:10 → H250 10-27 11:00
PROVIDERS: ADMIT Psychiatry & Neurology Psychiatry; ATTEND Psychiatry & Neurology Psychiatry
DX: F10.27 Alcohol dependence with alcohol-induced persisting dementia (principal); I48.91 Unspecified atrial fibrillation; J44.9 Chronic obstructive pulmonary disease, unspecified; F32.9 Major depressive disorder, single episode, unspecified; I10 Essential (primary) hypertension; G89.29 Other chronic pain; M19.90 Unspecified osteoarthritis, unspecified site; M54.5 Low back pain; R07.9 Chest pain, unspecified; F17.200 Nicotine dependence, unspecified, uncomplicated; Y90.0 Blood alcohol level of less than 20 mg/100 ml; Z91.14 Patient's other noncompliance with medication regimen
CPT/HCPCS: 80048; 80053; 80061; 80307; 81001; 83036; 84443; 85025; 96372; J1200; J1630; J2060

== ENCOUNTER 2018-01-03 11:02 | Inpatient (IN) | payer MEDICARE, OTHER ==
[~2018-01-03] VITALS: Ht 175.3 cm; Wt 77.0 kg
[~2018-01-03 11:02] MED LIST: CITRSOL3 PO; DULC10SU3 RECTAL; ENEMENE5 PR; MILKSUS PO; SERO25TA PO; TYLE325T PO
[2018-01-03 11:11] VITALS: BP 143/85; PULSE 77; TEMP 98.9
--- NOTE | 2018-01-03 11:16 | PD ---
HPI Chief Complaint: Psychiatric Issues Time Seen by Provider: 11:11 Travel History International Travel<30 days: No Contact w/Intl Traveler<30days: No History of Present Illness HPI 67-year-old male brought in under the Chu act from local nursing facility with complaints of increased agitation and threatening behavior to staff. Patient denies this at this time. He denies any acute medical issues. He has no pain. He has no known drug allergies. PFSH Past Medical History Arthritis: Yes Atrial Fibrillation: Yes Depression: Yes Heart Rhythm Problems: No Cancer: No (per patient) Cardiac Catheterization: No Cardiovascular Problems: Yes (A-fib and COPD) High Cholesterol: No Chest Pain: Yes (c/o suprasternal CP, MD notified) Congestive Heart Failure: No COPD: Yes Cerebrovascular Accident: Yes (APHASIA) Diabetes: No (per patient) Diminished Hearing: No Diverticulitis: Yes Hypertension: Yes Neurologic: Yes Psychiatric: Yes (Patient had a suicide attempt in 03/27/09) Myocardial Infarction: No Seizures: No (per patient) Past Surgical History Appendectomy: Yes Coronary Artery Bypass Graft: No Social History Alcohol Use: Yes (IN REHAB) Tobacco Use: No Substance Use: Yes Allergies-Medications (Allergen,Severity, Reaction): Coded Allergies: No Known Allergies (Verified Allergy, Unknown, 01/03/18) Reported Meds & Prescriptions Reported Meds & Active Scripts Active Seroquel (Quetiapine Fumarate) 25 Mg Tab 25 Mg PO DAILY@1200,1600,2200 Reported Milk of Magnesia Liq (Magnesium Hydroxide) 400 Mg/5 Ml Susp 30 Ml PO HS PRN Enema Disposable (Sodium Phosphates) 19 Gram-7 Gram/118 Ml Kelly 1 Applic [place] PRN Dulcolax Supp (Bisacodyl) 10 Mg Supp 10 Mg RECTAL IN AM PRN Citroma Liq (Magnesium Citrate) 300 Ml Liq 296 Ml PO IN AM PRN Tylenol (Acetaminophen) 325 Mg Tab 650 Mg PO Q4H PRN Review of Systems Except as stated in HPI: all other systems reviewed are Neg General / Constitutional: No: Fever Eyes: No: Visual changes HENT: No: Headaches Cardiovascular: No: Chest Pain or Discomfort Respiratory: No: Shortness of Breath Gastrointestinal: No: Abdominal Pain Genitourinary: No: Dysuria Musculoskeletal: No: Pain Skin: No Rash Neurologic: No: Weakness Psychiatric: No: Depression Endocrine: No: Polydipsia Hematologic/Lymphatic: No: Easy Bruising Physical Exam Narrative GENERAL: Patient appears in no obvious distress SKIN: Warm and dry. HEAD: Atraumatic. Normocephalic. EYES: Pupils equal and round. No scleral icterus. No injection or drainage. ENT: No nasal bleeding or discharge. Mucous membranes pink and moist. Pharynx is clear. Airways patent. NECK: Trachea midline. No JVD. Supple. CARDIOVASCULAR: Regular rate and rhythm. RESPIRATORY: No accessory muscle use. Clear to auscultation. Breath sounds equal bilaterally. GASTROINTESTINAL: Abdomen soft, non-tender, nondistended. Hepatic and splenic margins not palpable. MUSCULOSKELETAL: Extremities without clubbing, cyanosis, or edema. No obvious deformities. NEUROLOGICAL: Awake and alert. No obvious cranial nerve deficits. Motor grossly within normal limits. Five out of 5 muscle strength in the arms and legs. Normal speech. PSYCHIATRIC: Appropriate mood and affect; insight and judgment normal. Data Data Orders Orders Complete Blood Count With Diff (01/03/18 11:08) Comprehensive Metabolic Panel (01/03/18 11:08) Urinalysis - C+S If Indicated (01/03/18 11:08) Psych Screen (01/03/18 11:08) Diet Regular Basic (01/03/18 Lunch) Drug Screen, Random Urine (01/03/18 11:08) Alcohol (Ethanol) (01/03/18 11:08) Salicylates (Aspirin) (01/03/18 11:08) Tylenol (Acetaminophen) (01/03/18 11:08) [facility] Medical Decision Making Medical Screen Exam Complete: Yes Emergency Medical Condition: Yes Differential Diagnosis Chu act. Psychiatric symptoms. Increased aggression. History of dementia. Narrative Course Psychiatric labs ordered per protocol. Patient is medically cleared for psychiatric evaluation. Psych screen is ordered. Condition: Stable Geovanny Murphy January 03, 2018 11:15
[2018-01-03 11:53] LABS: AUTOMATED NEUTROPHIL # 4.7 TH/MM3 (1.8-7.7); BASOPHIL # 0.1 TH/MM3 (0-0.2); BASOPHIL % 0.7 % (0.0-2.0); EOSINOPHIL # 0.2 TH/MM3 (0-0.4); EOSINOPHIL % 2.9 % (0.0-4.0); HEMATOCRIT 44.4 % (39.0-51.0); HEMOGLOBIN 14.8 GM/DL (13.0-17.0); LYMPHOCYTE # 2.3 TH/MM3 (1.0-4.8); MEAN CELL VOLUME 85.3 FL (80.0-100.0); MEAN CORPUSCULAR HEMOGLOBIN 28.5 PG (27.0-34.0); MEAN CORPUSCULAR HGB CONC 33.4 % (32.0-36.0); MONO % 14.1 % (0.0-8.0); MONOCYTE # 1.2 TH/MM3 (0-0.9); NEUT % 55.3 % (16.0-70.0); PLATELET COUNT 233 TH/MM3 (150-450); RED BLOOD COUNT 5.21 MIL/MM3 (4.50-5.90); RED CELL DISTRIBUTION WIDTH 14.3 % (11.6-17.2); WHITE BLOOD COUNT 8.5 TH/MM3 (4.0-11.0)
[2018-01-03 12:10] LABS: AST (GOT) 12 U/L (15-37); BICARBONATE 23.6 MEQ/L (21.0-32.0); BLOOD UREA NITROGEN 11 MG/DL (7-18); CALCIUM 9.1 MG/DL (8.5-10.1); CHLORIDE 109 MEQ/L (98-107); CREATININE 0.87 MG/DL (0.60-1.30); GLOMERULAR FILTRATION RATE 88 ML/MIN (>89); GLUCOSE,RANDOM 78 MG/DL (74-106); SODIUM (NA) 141 MEQ/L (136-145)
[2018-01-03 12:15] LABS: ALKALINE PHOSPHATASE 118 U/L (45-117); ALT (GPT) 15 U/L (12-78); TOTAL BILIRUBIN ADULT 0.3 MG/DL (0.2-1.0); TOTAL PROTEIN 7.9 GM/DL (6.4-8.2)
[2018-01-03 12:18] LABS: ACETAMINOPHEN LESS THAN 2.0 MCG/ML (10.0-30.0)
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
[2018-01-03] MEDS ORDERED: ALUMINUM/MAGNESIUM/SIMETH 30 ML CUP PO PRN (16:15)
[2018-01-03] MEDS ORDERED: ACETAMINOPHEN 325 MG TAB PO PRN ×2 (16:15)
[2018-01-03] MEDS: NICOTINE 21 MG/24 HR PATCH T-DERMAL SCH (16:15)
[2018-01-03] MEDS ORDERED: LORazepam 0.5 MG TAB PO PRN ×2 (16:15→22:00)
[2018-01-03] MEDS ORDERED: MAGNESIUM HYDROXIDE SUSP 30 ML CUP PO PRN ×2 (16:15)
[2018-01-03] MEDS ORDERED: LORazepam 1 MG TAB PO PRN (16:15)
[2018-01-03] MEDS ORDERED: LORazepam 2 MG/ML VIAL IM PRN ×2 (16:15)
[2018-01-03 17:11] VITALS: BP 173/85; PULSE 80; RESP 18; TEMP 99; O2SAT 99
[2018-01-03] MEDS ORDERED: LORA-392 PO (18:17)
[2018-01-03] MEDS ORDERED: QUET1TAB8 PO (18:17)
[2018-01-03] MEDS ORDERED: cloNIDine HCL 0.1 MG TAB PO ONE (18:30)
[2018-01-03 21:37] VITALS: BP 127/75; PULSE 64; RESP 14
[2018-01-03] MEDS ORDERED: QUEtiapine FUMARATE 25 MG TAB PO SCH (22:00)
[2018-01-03] MEDS: QUEtiapine FUMARATE 100 MG TAB PO SCH (22:10)
[2018-01-04 06:16] VITALS: BP 111/63; PULSE 64; RESP 18; TEMP 98.1; O2SAT 97
[2018-01-04] MEDS: REMOVE OLD NICODERM (NICOTINE) PATCH T-DERMAL SCH (09:00)
[2018-01-04] MEDS: QUEtiapine FUMARATE 100 MG TAB PO SCH ×2 (09:00→21:28)
[2018-01-04] MEDS: NICOTINE 21 MG/24 HR PATCH T-DERMAL SCH (09:00)
--- NOTE | 2018-01-04 11:28 | PD.CONS ---
HPI Service [facility] Hospitalists Consult Requested By Psychiatry Reason for Consult Atrial fibrillation, COPD. Primary Care Physician Unknown Diagnoses: History of Present Illness Mr. Valladares is a 67-year-old male with a history of atrial fibrillation, COPD who was brought to [facility] under Chu act from a local nursing facility due to increased agitation and threatening behavior to the staff. Hospital service was consulted for atrial fibrillation, COPD. At the time of this interview, patient was not very cooperative with history. He denied any medical problems. He denies any current medical concerns. No chest pain, shortness of breath, fever or chills. No changes in bowel or bladder habits. With his permission I was able to do a limited physical exam. Review of Systems Except as stated in HPI: all other systems reviewed are Neg Past Family Social History Allergies: Coded Allergies: No Known Allergies (Verified Allergy, Unknown, 01/03/18) Past Medical History COPD, atrial fibrillation, arthritis, depression Past Surgical History Appendectomy Reported Medications Current Medications Medications (Trade) Dose Ordered Sig/Tyra Route Start Time Stop Time Status Last Admin (Ativan) 0.5 mg Q12H PRN PO 01/03/18 16:15 (Ativan Inj) 0.5 mg Q12H PRN IM 01/03/18 16:15 (Tylenol) 650 mg Q4H PRN PO 01/03/18 16:15 (Milk Of Magnesia Liq) 30 ml DAILY PRN PO 01/03/18 16:15 (Mag-Al Plus Susp Liq) 30 ml Q6H PRN PO 01/03/18 16:15 (Habitrol 21 Mg Patch.24 Hr) 1 patch DAILY T-DERMAL 01/03/18 16:15 Miscellaneous Information 1 DAILY T-DERMAL 01/04/18 09:00 (Ativan) 0.5 mg BID PRN PO 01/03/18 22:00 (SEROquel) 100 mg BID PO 01/03/18 22:00 Family History No family history of Alzheimer's or Parkinson's. Social History Patient reports using alcohol. Denies using tobacco. Physical Exam Vital Signs Vital Signs Date Time Temp Pulse Resp B/P (MAP) Pulse Ox O2 Delivery O2 Flow Rate FiO2 01/04/18 06:16 98.1 64 18 111/63 (79) 97 01/03/18 21:37 64 14 127/75 (92) 01/03/18 17:11 99.0 80 18 173/85 (114) 99 Physical Exam GENERAL: This is a well-nourished, well-developed patient, in no apparent distress. SKIN: No rashes, ecchymoses or lesions. Warm and dry. HEAD: Atraumatic. Normocephalic. No temporal or scalp tenderness. EYES: Pupils equal round and reactive. No injection or drainage. ENT: Nose without bleeding, purulent drainage or septal hematoma. Airway patent. NECK: Trachea midline. No lymphadenopathy. Supple, nontender, no meningeal signs. CARDIOVASCULAR: Regular rate and rhythm without murmurs, gallops, or rubs. No JVD. RESPIRATORY: Clear to auscultation. Breath sounds equal bilaterally. No wheezes , rales, or rhonchi. GASTROINTESTINAL: Abdomen soft, non-tender, nondistended. No guarding. MUSCULOSKELETAL: Extremities without clubbing, cyanosis, or edema. NEUROLOGICAL: Awake and alert. Cranial nerves II through XII intact. No focal neurological deficits. Normal speech. Laboratory Laboratory Tests Test 01/03/18 11:30 White Blood Count 8.5 Red Blood Count 5.21 Hemoglobin 14.8 Hematocrit 44.4 Mean Corpuscular Volume 85.3 Mean Corpuscular Hemoglobin 28.5 Mean Corpuscular Hemoglobin Concent 33.4 Red Cell Distribution Width 14.3 Platelet Count 233 Mean Platelet Volume 11.0 Neutrophils (%) (Auto) 55.3 Lymphocytes (%) (Auto) 27.0 Monocytes (%) (Auto) 14.1 Eosinophils (%) (Auto) 2.9 Basophils (%) (Auto) 0.7 Neutrophils # (Auto) 4.7 Lymphocytes # (Auto) 2.3 Monocytes # (Auto) 1.2 Eosinophils # (Auto) 0.2 Basophils # (Auto) 0.1 CBC Comment DIFF FINAL Differential Comment Blood Urea Nitrogen 11 Creatinine 0.87 Random Glucose 78 Total Protein 7.9 Albumin 4.0 Calcium Level 9.1 Alkaline Phosphatase 118 Aspartate Amino Transf (AST/SGOT) 12 Alanine Aminotransferase (ALT/SGPT) 15 Total Bilirubin 0.3 Sodium Level 141 Potassium Level 3.5 Chloride Level 109 Carbon Dioxide Level 23.6 Anion Gap 8 Estimat Glomerular Filtration Rate 88 Salicylates Level 1.8 Acetaminophen Level LESS THAN 2.0 Ethyl Alcohol Level LESS THAN 3 Result Diagram: 01/03/18 1130 01/03/18 1130 Assessment and Plan Problem List: (1) Dementia with behavioral disturbance ICD Code: F03.91 - Unspecified dementia with behavioral disturbance Assessment and Plan Mr. Valladares is a 67-year-old male with a reported history of atrial fibrillation , COPD who was brought to the hospital under Chu act due to increased agitation and threatening behavior. Hospital service was consulted for medical management. Patient currently denies any medical concerns. Dementia with behavioral disturbance -Management per psychiatry team. Continue Seroquel and lorazepam as needed. Reported history of atrial fibrillation -If he does have A. fib, his [id number] score is likely 1. -Aspirin 81 mg would be sufficient for anticoagulation. Reported history of COPD -currently stable. If required consider using DuoNeb as needed. At this point he is on room air. Full code. Ambulation. Thank you for the consult. We will sign off at this point. If we can be of any help, please do not hesitate to contact us. Chi Olivares DO January 04, 2018 11:28 am
--- NOTE | 2018-01-04 11:30 | HHI.PYPN ---
Subjective Remarks This is a request for second opinion. Admission note was reviewed and I agree with the history. Patient was seen and case was discussed with nursing. Patient interviewed in bed. Patient is alert and oriented 2. Affect is blunted. Patient denies depressed mood but has passive suicidal ideation. He says he does not care if he "lives or dies." Denies any plan or intent. Mental Status Examination Appearance: Appropriate Consciousness: Alert Orientation: Person Motor Activity: Normal gait Speech: Slow Language: Adequate Fund of Knowledge: Inadequate Attention and Concentration: Inadequate Memory: Impaired Mood: Sad Affect: Blunt Thought Process & Associations: Disorganized Thought Content: Delusional Hallucination Type: None Delusion Type: Paranoid Suicidal Ideation: No Suicidal Plan: No Suicidal Intention: No Homicidal Ideation: No Homicidal Plan: No Homicidal Intention: No Insight: Poor Judgment: Poor Results Labs Test 01/03/18 11:30 White Blood Count 8.5 TH/MM3 Red Blood Count 5.21 MIL/MM3 Hemoglobin 14.8 GM/DL Hematocrit 44.4 % Mean Corpuscular Volume 85.3 FL Mean Corpuscular Hemoglobin 28.5 PG Mean Corpuscular Hemoglobin Concent 33.4 % Red Cell Distribution Width 14.3 % Platelet Count 233 TH/MM3 Mean Platelet Volume 11.0 FL Neutrophils (%) (Auto) 55.3 % Lymphocytes (%) (Auto) 27.0 % Monocytes (%) (Auto) 14.1 % Eosinophils (%) (Auto) 2.9 % Basophils (%) (Auto) 0.7 % Neutrophils # (Auto) 4.7 TH/MM3 Lymphocytes # (Auto) 2.3 TH/MM3 Monocytes # (Auto) 1.2 TH/MM3 Eosinophils # (Auto) 0.2 TH/MM3 Basophils # (Auto) 0.1 TH/MM3 CBC Comment DIFF FINAL Differential Comment Blood Urea Nitrogen 11 MG/DL Creatinine 0.87 MG/DL Random Glucose 78 MG/DL Total Protein 7.9 GM/DL Albumin 4.0 GM/DL Calcium Level 9.1 MG/DL Alkaline Phosphatase 118 U/L Aspartate Amino Transf (AST/SGOT) 12 U/L Alanine Aminotransferase (ALT/SGPT) 15 U/L Total Bilirubin 0.3 MG/DL Sodium Level 141 MEQ/L Potassium Level 3.5 MEQ/L Chloride Level 109 MEQ/L Carbon Dioxide Level 23.6 MEQ/L Anion Gap 8 MEQ/L Estimat Glomerular Filtration Rate 88 ML/MIN Salicylates Level 1.8 MG/DL Acetaminophen Level LESS THAN 2.0 MCG/ML Ethyl Alcohol Level LESS THAN 3 MG/DL Vitals/IOs Vital Signs Date Time Temp Pulse Resp B/P (MAP) Pulse Ox O2 Delivery O2 Flow Rate FiO2 01/04/18 06:16 98.1 64 18 111/63 (79) 97 Assessment & Plan Problem List: (1) Dementia with behavioral disturbance ICD Codes: F03.91 - Unspecified dementia with behavioral disturbance Assessment & Plan This appears to be a change in mood compared to yesterday. We will continue to monitor. I agree with the first opinion to continue petition. Criteria include aggressive behavior Justification for Cont. Inpt. Patient would decompensate in a less restrictive setting Ashish Valladares DO January 04, 2018 11:30
--- NOTE | 2018-01-04 18:27 | EKG ---
Date Performed: 01/03/2018 Time Performed: 18:29:50 PTAGE: 67 years EKG: Sinus rhythm WITH OCCASIONAL VENTRICULAR PREMATURE COMPLEXES BORDERLINE ECG PREVIOUS TRACING : 04/24/2009 13.31 Compared to previous tracing, rate faster DOCTOR: Valerio Ventura Interpretating Date/Time 01/04/2018 18:26:44
[2018-01-05 05:54] VITALS: BP 110/70; PULSE 61; RESP 18; TEMP 98.1; O2SAT 98
[2018-01-05 06:11] VITALS: BP 110/70; PULSE 61; RESP 18; TEMP 98.1; O2SAT 98
[2018-01-05] MEDS: ASPIRIN EC 81 MG TABEC PO SCH (09:00)
[2018-01-05] MEDS: NICOTINE 21 MG/24 HR PATCH T-DERMAL SCH (09:00)
[2018-01-05] MEDS: REMOVE OLD NICODERM (NICOTINE) PATCH T-DERMAL SCH (09:00)
[2018-01-05] MEDS: QUEtiapine FUMARATE 100 MG TAB PO SCH ×2 (09:00→21:39)
--- NOTE | 2018-01-05 11:29 | HHI.PYPN ---
Subjective Remarks Patient was seen and case discussed with nursing. Today patient is is angry and dismissive and insulting during the interview. Refuses to answer any questions and tells us to leave. He has had the same behavior with the nurses. He refused all of his medications and lab work Mental Status Examination Appearance: Appropriate Consciousness: Alert Orientation: Person Motor Activity: Normal gait Speech: Slow Language: Adequate Fund of Knowledge: Inadequate Attention and Concentration: Inadequate Memory: Impaired Mood: Angry Affect: Irritable, Blunt Thought Process & Associations: Disorganized Thought Content: Delusional Hallucination Type: None Delusion Type: Paranoid Suicidal Ideation: No Suicidal Plan: No Suicidal Intention: No Homicidal Ideation: No Homicidal Plan: No Homicidal Intention: No Insight: Poor Judgment: Poor Results Vitals/IOs Vital Signs Date Time Temp Pulse Resp B/P (MAP) Pulse Ox O2 Delivery O2 Flow Rate FiO2 01/05/18 06:11 98.1 61 18 110/70 (83) 98 Intake and Output 01/05/18 01/05/18 01/06/18 08:00 16:00 00:00 Intake Total 0 ml Balance 0 ml Assessment & Plan Problem List: (1) Dementia with behavioral disturbance ICD Codes: F03.91 - Unspecified dementia with behavioral disturbance Assessment & Plan Encourage medication compliance Justification for Cont. Inpt. Patient would decompensate in a less restrictive setting Ashish Valladares DO January 05, 2018 11:29
[2018-01-05 17:45] VITALS: BP 144/66; PULSE 74; RESP 18; TEMP 97.7; O2SAT 99
[2018-01-06 06:04] VITALS: BP 114/68; PULSE 69; RESP 18; TEMP 97.6; O2SAT 96
[2018-01-06] MEDS: QUEtiapine FUMARATE 100 MG TAB PO SCH ×2 (09:00→21:00)
[2018-01-06] MEDS: REMOVE OLD NICODERM (NICOTINE) PATCH T-DERMAL SCH (09:00)
[2018-01-06] MEDS: NICOTINE 21 MG/24 HR PATCH T-DERMAL SCH (09:00)
[2018-01-06] MEDS: ASPIRIN EC 81 MG TABEC PO SCH (09:00)
--- NOTE | 2018-01-06 13:20 | HHI.PYPN ---
Subjective Remarks The patient was seen today for psychiatric reevaluation. Documentation from the weekend psychiatrist was reviewed. Vital signs, labs, recommendations from hospitalists were also reviewed. This was discussed with nurse in charge. On psychiatric evaluation the patient is found in bed, he is sleeping, but easily arousable. Patient seems to be quite sedated, is able to report that he feels okay, he reports good mood, denies suicidal and homicidal ideation. Patient is disoriented in time and place, unable to even repeat the reason he is in the hospital. He has been compliant with medications, no significant side effects other than sedation reported. No agitation or aggressive behavior in the last 24 hours. Review of Systems Psychiatric: COMPLAINS OF: Agitation Mental Status Examination Appearance: Appropriate Consciousness: Alert Orientation: Person Motor Activity: Normal gait Speech: Slow Language: Adequate Fund of Knowledge: Inadequate Attention and Concentration: Inadequate Memory: Impaired Mood: Angry Affect: Irritable, Blunt Thought Process & Associations: Disorganized Thought Content: Delusional Hallucination Type: None Delusion Type: Paranoid Suicidal Ideation: No Suicidal Plan: No Suicidal Intention: No Homicidal Ideation: No Homicidal Plan: No Homicidal Intention: No Insight: Poor Judgment: Poor Results Vitals/IOs Vital Signs Date Time Temp Pulse Resp B/P (MAP) Pulse Ox O2 Delivery O2 Flow Rate FiO2 01/06/18 06:04 97.6 69 18 114/68 (83) 96 Assessment & Plan Problem List: (1) Dementia with behavioral disturbance ICD Codes: F03.91 - Unspecified dementia with behavioral disturbance Assessment & Plan: Patient does not seem to be behavior this regulated today. He does present sedated. I will increase the Seroquel to 150 at night and decrease the morning dose to 50 mg to avoid day sedation. We will continue monitoring behavior and mood. Assessment & Plan Estimated LOS: days Justification for Cont. Inpt. Patient has an elevated risk to decompensate at a lower level of care. Gian Hui MD January 06, 2018 13:20
[2018-01-06] MEDS ORDERED: PILL SPLITTER OTHER PRN (13:30)
--- NOTE | 2018-01-06 16:01 | PD.TTN ---
Patient Problems 1. Discharge planning 2. Medication compliance 3. Knowledge deficit 4. Lack of coping skills Progress Toward Goals Provider Present: Dr. Cyndi Camarena Provider Input: new from a facility Nurse(s) Input: 01/06/18 Ottoniel: has pooped on himself in bed, is in bed, aggitated, aggressive and angry with staff and was given a shot Psychiatric Counselors Present: Araseli Hernandez LCSW Psych Therapist Input: 01/06/18 new but has been here in past - told counselor to get out of the room and not cooperating Group Spec/RT/OT/ORTEGA Present: JORDAN Langston Group Spec/RT/OT/ORTEGA Input: 01/06/18 no group attendance yet Documentation Teaching Recipient: Patient Araseli Hernandez LCSW January 06, 2018 16:01
[2018-01-06 18:05] VITALS: BP 157/82; PULSE 77; RESP 18; TEMP 98.7; O2SAT 97
[2018-01-07 05:46] VITALS: BP 129/69; PULSE 69; RESP 16; TEMP 97.5; O2SAT 97
[2018-01-07 08:02] LABS: BICARBONATE 26.2 MEQ/L (21.0-32.0); BLOOD UREA NITROGEN 15 MG/DL (7-18); CALCIUM 8.8 MG/DL (8.5-10.1); CHLORIDE 107 MEQ/L (98-107); CHOLESTEROL 166 MG/DL (120-200); CREATININE 0.88 MG/DL (0.60-1.30); GLOMERULAR FILTRATION RATE 86 ML/MIN (>89); GLUCOSE,RANDOM 80 MG/DL (74-106); SODIUM (NA) 142 MEQ/L (136-145)
[2018-01-07 08:04] LABS: CHOLESTEROL/ HDL RATIO 4.26 RATIO; HDL CHOLESTEROL 38.9 MG/DL (40.0-60.0); LDL CHOLESTEROL 111 MG/DL (0-99); TRIGLYCERIDES 82 MG/DL (42-150)
[2018-01-07] MEDS: NICOTINE 21 MG/24 HR PATCH T-DERMAL SCH (09:00)
[2018-01-07] MEDS: QUEtiapine FUMARATE 25 MG TAB PO SCH (09:00)
[2018-01-07] MEDS: ASPIRIN EC 81 MG TABEC PO SCH (09:00)
[2018-01-07] MEDS: REMOVE OLD NICODERM (NICOTINE) PATCH T-DERMAL SCH (09:00)
--- NOTE | 2018-01-07 14:10 | HHI.PYPN ---
Subjective Remarks The patient was seen today for psychiatric evaluation. He was seen along with nurse in charge Deysi. The patient continues to be very oppositional, refusing to talk, selectively mute. The only statement that he articulated this morning with "give me a beer". It has been secluded, isolated, not talking , not even eating and not taking his medications. No agitation or aggressive behavior reported. Review of Systems Except as stated in HPI: all other systems reviewed are Neg Mental Status Examination Appearance: Appropriate Consciousness: Alert Orientation: Person Motor Activity: Normal gait Speech: Slow Language: Adequate Fund of Knowledge: Inadequate Attention and Concentration: Inadequate Memory: Impaired Mood: Angry Affect: Irritable, Blunt Thought Process & Associations: Disorganized Thought Content: Delusional Hallucination Type: None Delusion Type: Paranoid Suicidal Ideation: No Suicidal Plan: No Suicidal Intention: No Homicidal Ideation: No Homicidal Plan: No Homicidal Intention: No Insight: Poor Judgment: Poor Results Labs Test 01/07/18 06:53 Blood Urea Nitrogen 15 MG/DL Creatinine 0.88 MG/DL Random Glucose 80 MG/DL Calcium Level 8.8 MG/DL Sodium Level 142 MEQ/L Potassium Level 3.9 MEQ/L Chloride Level 107 MEQ/L Carbon Dioxide Level 26.2 MEQ/L Anion Gap 9 MEQ/L Estimat Glomerular Filtration Rate 86 ML/MIN Triglycerides Level 82 MG/DL Cholesterol Level 166 MG/DL LDL Cholesterol 111 MG/DL HDL Cholesterol 38.9 MG/DL Cholesterol/HDL Ratio 4.26 RATIO Vitals/IOs Vital Signs Date Time Temp Pulse Resp B/P (MAP) Pulse Ox O2 Delivery O2 Flow Rate FiO2 01/07/18 05:46 97.5 69 16 129/69 (89) 97 Intake and Output 01/07/18 01/07/18 01/08/18 08:00 16:00 00:00 Intake Total 0 ml 50 ml Balance 0 ml 50 ml Assessment & Plan Problem List: (1) Dementia with behavioral disturbance ICD Codes: F03.91 - Unspecified dementia with behavioral disturbance Assessment & Plan: Continue to encourage the patient to take his medications, participate in activities, to eat. He needs to continue psychiatric hospitalization for stabilization and safety. Assessment & Plan Estimated LOS: days Justification for Cont. Inpt. Patient has an elevated risk to decompensate at a lower level of care Gian Hui MD January 07, 2018 14:10
[2018-01-07 15:44] LABS: HEMOGLOBIN A1C 5.5 % (4.3-6.0)
[2018-01-07 18:05] VITALS: BP 142/78; PULSE 92; RESP 18; TEMP 97.8; O2SAT 97
[2018-01-07] MEDS: QUEtiapine FUMARATE 100 MG TAB PO SCH (20:52)
[2018-01-08 06:00] VITALS: BP 107/61; PULSE 64; RESP 16; TEMP 97.6; O2SAT 96
[2018-01-08] MEDS: QUEtiapine FUMARATE 25 MG TAB PO SCH (09:00)
[2018-01-08] MEDS: REMOVE OLD NICODERM (NICOTINE) PATCH T-DERMAL SCH (09:00)
[2018-01-08] MEDS: ASPIRIN EC 81 MG TABEC PO SCH (09:00)
[2018-01-08] MEDS: NICOTINE 21 MG/24 HR PATCH T-DERMAL SCH (09:00)
--- NOTE | 2018-01-08 12:06 | HHI.PYPN ---
Subjective Remarks Psychiatric evaluation today the patient continues to be quite oppositional, irritable, insisting and not to cooperate. However, the patient has been talking more and he has been eating. He refuses to do his medications. Is mostly secluded, isolated, does not answer more than 80% of the questions. He answers selectively usually with monosyllabic answers. No agitation or aggressive behavior reported. Mental Status Examination Appearance: Appropriate Consciousness: Alert Orientation: Person Motor Activity: Normal gait Speech: Slow Language: Adequate Fund of Knowledge: Inadequate Attention and Concentration: Inadequate Memory: Impaired Mood: Angry Affect: Irritable, Blunt Thought Process & Associations: Disorganized Thought Content: Delusional Hallucination Type: None Delusion Type: Paranoid Suicidal Ideation: No Suicidal Plan: No Suicidal Intention: No Homicidal Ideation: No Homicidal Plan: No Homicidal Intention: No Insight: Poor Judgment: Poor Results Vitals/IOs Vital Signs Date Time Temp Pulse Resp B/P (MAP) Pulse Ox O2 Delivery O2 Flow Rate FiO2 01/08/18 06:00 97.6 64 16 107/61 (76) 96 Intake and Output 01/08/18 01/08/18 01/09/18 08:00 16:00 00:00 Intake Total 480 ml Balance 480 ml Assessment & Plan Problem List: (1) Dementia with behavioral disturbance ICD Codes: F03.91 - Unspecified dementia with behavioral disturbance Assessment & Plan: Continue to encourage the patient to take medications. He continued to be very oppositional, internally preoccupied. Assessment & Plan Estimated LOS: days Justification for Cont. Inpt. Patient has an elevated risk to decompensate at a lower level of care. Gian Hui MD January 08, 2018 12:06
[2018-01-08 16:50] VITALS: BP 123/77; PULSE 68; RESP 16; TEMP 97.4; O2SAT 97
[2018-01-08] MEDS: QUEtiapine FUMARATE 100 MG TAB PO SCH (21:00)
[2018-01-09 06:00] VITALS: BP 129/82; PULSE 63; RESP 18; TEMP 97.5; O2SAT 95
[2018-01-09] MEDS: NICOTINE 21 MG/24 HR PATCH T-DERMAL SCH (09:00)
[2018-01-09] MEDS: REMOVE OLD NICODERM (NICOTINE) PATCH T-DERMAL SCH (09:00)
[2018-01-09] MEDS: ASPIRIN EC 81 MG TABEC PO SCH (09:00)
[2018-01-09] MEDS: QUEtiapine FUMARATE 25 MG TAB PO SCH (09:00)
--- NOTE | 2018-01-09 12:56 | HHI.PYPN ---
Subjective Remarks Patient was seen today for psychiatric reevaluation. The patient cystogram much calm her, more open to talk and cooperative. He reports feeling better, he denies distress, denies anxiety, denies pain, denies depression. Patient reports that he has a good appetite, and he has been sleeping okay at night. I confronted him about his refusal to eat to take medications, he says that he will do no agitation, no aggressive behavior reported. Patient is definitely eating breakfast lunch and dinner, as per nurses Mental Status Examination Appearance: Appropriate Consciousness: Alert Orientation: Person Motor Activity: Normal gait Speech: Slow Language: Adequate Fund of Knowledge: Inadequate Attention and Concentration: Inadequate Memory: Impaired Mood: Irritable Affect: Appropriate, Blunt Thought Process & Associations: Disorganized Thought Content: Delusional Hallucination Type: None Delusion Type: Paranoid Suicidal Ideation: No Suicidal Plan: No Suicidal Intention: No Homicidal Ideation: No Homicidal Plan: No Homicidal Intention: No Insight: Fair Judgment: Impulsive Results Vitals/IOs Vital Signs Date Time Temp Pulse Resp B/P (MAP) Pulse Ox O2 Delivery O2 Flow Rate FiO2 01/09/18 06:00 97.5 63 18 129/82 (98) 95 Intake and Output 01/09/18 01/09/18 01/10/18 08:00 16:00 00:00 Intake Total 360 ml 240 ml Balance 360 ml 240 ml Assessment & Plan Problem List: (1) Dementia with behavioral disturbance ICD Codes: F03.91 - Unspecified dementia with behavioral disturbance Assessment & Plan: Continue current psychotropic regimen. Assessment & Plan Estimated LOS: days Justification for Cont. Inpt. Patient has an elevated risk to decompensate at a lower level of care. Gian Hui MD January 09, 2018 12:56
[2018-01-09 18:02] VITALS: BP 129/64; PULSE 79; RESP 20; TEMP 98.1; O2SAT 96
[2018-01-09] MEDS: QUEtiapine FUMARATE 100 MG TAB PO SCH (20:45)
[2018-01-10 06:36] VITALS: BP 98/62; PULSE 64; RESP 16; TEMP 97.5; O2SAT 96
[2018-01-10] MEDS: NICOTINE 21 MG/24 HR PATCH T-DERMAL SCH (08:39)
[2018-01-10] MEDS: REMOVE OLD NICODERM (NICOTINE) PATCH T-DERMAL SCH (08:39)
[2018-01-10] MEDS: QUEtiapine FUMARATE 25 MG TAB PO SCH (08:40)
[2018-01-10] MEDS: ASPIRIN EC 81 MG TABEC PO SCH (08:40)
--- NOTE | 2018-01-10 11:32 | PD.TTN ---
Patient Problems 1. Discharge planning 2. Medication compliance 3. Knowledge deficit 4. Lack of coping skills Progress Toward Goals Provider Present: Dr. Cyndi Camarena Provider Input: 01/08/2018; patient's medications are being titrated to address patient's mood new from a facility Nurse(s) Present: RN Nurse(s) Input: 01/08/2018; patient is no behavior, requires redirection and coaching with meds, he is compliant with meals 01/06/18 Ottoniel: has pooped on himself in bed, is in bed, aggitated, aggressive and angry with staff and was given a shot Psychiatric Counselors Present: Araseli Hernandez LCSW, Anya Tijerina, [facility] Psych Therapist Input: 01/08/2018; counselor contact [facility] who has stated they will accept patient when stable 01/06/18 new but has been here in past - told counselor to get out of the room and not cooperating Group Spec/RT/OT/ORTEGA Present: Geovanny Lara OT, JORDAN Langston Group Spec/RT/OT/ORTEGA Input: 01/08/2018; patient has refused groups 01/06/18 no group attendance yet Documentation Scribe: Anya Tijerina Teaching Recipient: Patient Anya Tijerina [facility] January 10, 2018 11:31
[2018-01-10] MEDS ORDERED: QUET1TAB8 PO (12:06)
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
== END 2018-01-10 15:00 | disposition home or self-care (01) | DRG 884 ==
LOC: NEDAMB 11:02 → NEDA 16:09 → H260 17:15 → H4EA 01-06 16:09
PROVIDERS: ADMIT Psychiatry & Neurology Psychiatry; ATTEND Psychiatry & Neurology Psychiatry
DX: F03.91 Unspecified dementia, unspecified severity, with behavioral disturbance (principal); R45.851 Suicidal ideations; J44.9 Chronic obstructive pulmonary disease, unspecified; I10 Essential (primary) hypertension; I69.320 Aphasia following cerebral infarction; F32.9 Major depressive disorder, single episode, unspecified; F94.0 Selective mutism; M19.90 Unspecified osteoarthritis, unspecified site
CPT/HCPCS: 80048; 80053; 80061; 80307; 83036; 85025; 93005; 99285; J2060

== ENCOUNTER 2018-01-23 13:31 | Inpatient (IN) | payer MEDICARE, OTHER ==
[~2018-01-23] VITALS: Ht 175.3 cm; Wt 85.9 kg
[~2018-01-23 13:31] MED LIST changes: +LORA-392 PO; +QUET1TAB8 PO; -SERO25TA PO
[2018-01-23 13:38] VITALS: BP 138/89; PULSE 101; RESP 16; TEMP 97.7; O2SAT 97
[2018-01-23] MEDS ORDERED: SERO25TA PO (16:54)
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
[2018-01-23 19:55] VITALS: BP 108/66; PULSE 71; RESP 18; TEMP 98.7; O2SAT 98
[2018-01-23 20:11] LABS: AUTOMATED NEUTROPHIL # 6.1 TH/MM3 (1.8-7.7); BASOPHIL # 0.1 TH/MM3 (0-0.2); EOSINOPHIL # 0.2 TH/MM3 (0-0.4); EOSINOPHIL % 2.1 % (0.0-4.0); HEMATOCRIT 48.7 % (39.0-51.0); HEMOGLOBIN 16.1 GM/DL (13.0-17.0); LYMPH % 25.6 % (9.0-44.0); LYMPHOCYTE # 2.6 TH/MM3 (1.0-4.8); MEAN CELL VOLUME 85.1 FL (80.0-100.0); MEAN CORPUSCULAR HEMOGLOBIN 28.2 PG (27.0-34.0); MEAN CORPUSCULAR HGB CONC 33.1 % (32.0-36.0); MEAN PLATELET VOLUME 11.9 FL (7.0-11.0); MONO % 11.4 % (0.0-8.0); MONOCYTE # 1.2 TH/MM3 (0-0.9); NEUT % 59.9 % (16.0-70.0); PLATELET COUNT 233 TH/MM3 (150-450); RED BLOOD COUNT 5.72 MIL/MM3 (4.50-5.90); RED CELL DISTRIBUTION WIDTH 14.9 % (11.6-17.2); WHITE BLOOD COUNT 10.2 TH/MM3 (4.0-11.0)
[2018-01-23 22:08] LABS: ALBUMIN 3.8 GM/DL (3.4-5.0); AST (GOT) 17 U/L (15-37); BICARBONATE 26.1 MEQ/L (21.0-32.0); BLOOD UREA NITROGEN 15 MG/DL (7-18); CHLORIDE 108 MEQ/L (98-107); CREATININE 0.88 MG/DL (0.60-1.30); GLOMERULAR FILTRATION RATE 86 ML/MIN (>89); GLUCOSE,RANDOM 93 MG/DL (74-106); SODIUM (NA) 142 MEQ/L (136-145)
[2018-01-23 22:09] LABS: ALT (GPT) 15 U/L (12-78)
[2018-01-23 22:13] VITALS: BP 120/69; PULSE 66; RESP 18
[2018-01-23 22:18] LABS: ALKALINE PHOSPHATASE 124 U/L (45-117); TOTAL BILIRUBIN ADULT 0.6 MG/DL (0.2-1.0); TOTAL PROTEIN 7.5 GM/DL (6.4-8.2)
[2018-01-24 02:32] VITALS: BP 99/63; PULSE 67; RESP 18; O2SAT 96
[2018-01-24 06:46] VITALS: BP 136/67; PULSE 63; RESP 17; O2SAT 96
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
[2018-01-24] MEDS ORDERED: ACETAMINOPHEN 325 MG TAB PO PRN (11:00)
[2018-01-24 13:12] VITALS: BP 149/85; PULSE 71; RESP 18; TEMP 98.2; O2SAT 98
[2018-01-24 17:25] VITALS: BP 125/82; PULSE 75; RESP 17; TEMP 97.8; O2SAT 97
[2018-01-25 06:19] VITALS: BP 114/71; PULSE 63; RESP 17; TEMP 98.1; O2SAT 100
[2018-01-25 08:41] LABS: BICARBONATE 23.8 MEQ/L (21.0-32.0); BLOOD UREA NITROGEN 17 MG/DL (7-18); CALCIUM 8.7 MG/DL (8.5-10.1); CHLORIDE 107 MEQ/L (98-107); CHOLESTEROL 168 MG/DL (120-200); CREATININE 0.78 MG/DL (0.60-1.30); GLOMERULAR FILTRATION RATE 99 ML/MIN (>89); GLUCOSE,RANDOM 64 MG/DL (74-106); SODIUM (NA) 141 MEQ/L (136-145)
[2018-01-25 08:42] LABS: CHOLESTEROL/ HDL RATIO 4.27 RATIO; HDL CHOLESTEROL 39.3 MG/DL (40.0-60.0); LDL CHOLESTEROL 113 MG/DL (0-99); TRIGLYCERIDES 80 MG/DL (42-150)
[2018-01-25] MEDS: QUEtiapine FUMARATE 100 MG TAB PO SCH ×2 (09:00→21:00)
[2018-01-25] MEDS: QUEtiapine FUMARATE 25 MG TAB PO SCH ×2 (09:00→21:00)
[2018-01-25] MEDS ORDERED: hydrOXYzine HCL 50 MG TAB PO PRN (09:00)
[2018-01-25] MEDS ORDERED: MAGNESIUM HYDROXIDE SUSP 30 ML CUP PO PRN (09:00)
[2018-01-25] MEDS ORDERED: ALUMINUM/MAGNESIUM/SIMETH 30 ML CUP PO PRN (09:00)
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
--- NOTE | 2018-01-25 14:29 | EKG ---
Date Performed: 01/25/2018 Time Performed: 09:51:01 PTAGE: 67 years EKG: Sinus rhythm NORMAL ECG PREVIOUS TRACING : 01/03/2018 18.29 Since previous tracing, PVCs no longer present. DOCTOR: Roge Joy Interpretating Date/Time 01/25/2018 14:29:25
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
[2018-01-25] MEDS ORDERED: RESP: ALBUTEROL 2.5 MG/IPRATROPIUM 0.5 MG NEB (PRN) NEB (15:15)
[2018-01-25] MEDS: ASPIRIN EC 81 MG TABEC PO SCH (15:30)
[2018-01-25 17:55] VITALS: BP 133/62; PULSE 68; RESP 16; TEMP 98.5; O2SAT 95
--- NOTE | 2018-01-25 18:39 | RADRPT ---
EXAM DATE: 01/25/2018 6:34 PM EDT AGE/SEX: 67 years / Male INDICATIONS: Cerebrovascular accident. CLINICAL DATA: This is the patient's initial encounter. Patient reports that signs and symptoms have been present for 1 day and indicates a pain score of 0/10. MEDICAL/SURGICAL HISTORY: Cerebrovascular disease. Cardiovascular disease. Hyperparathyroidism. AFIB, Dementia. Appendectomy. RADIATION DOSE: 56.35 CTDI (mGy) COMPARISON: No prior [place] exams available for comparison. TECHNIQUE: CT of the head without contrast. Using automated exposure control and adjustment of the mA and/or kV according to patient size, radiation dose was kept as low as reasonably achievable to ob tain optimal diagnostic quality images. FINDINGS: Cerebrum: Moderate to severe periventricular and subcortical white matter small vessel ischemic rubin ges are noted bilaterally. 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 Diffuse cerebral atrophy is noted. Old lacunar infarcts are noted within the left basal ganglia. No acute hemorrhage, acute infarct, midline shift or extra-axial fluid collections are noted. Posterior Fossa: The cerebellum and brainstem are intact. The 4th ventricle is midline. The cerebe llopontine angle is unremarkable. Extracranial: The visualized portion of the orbits is intact. Skull: The calvaria is intact. No evidence of skull fracture. CONCLUSION: 1. Moderate to severe periventricular and subcortical white matter small vessel ischemic changes are noted bilaterally. 2. Old infarcts are noted within the right occipital lobe, left temporal lobe and left posterior par ietal lobe. 3. No acute hemorrhage, acute infarct, midline shift or extra-axial fluid collections. 4. Diffuse cerebral atrophy. 5. Old lacunar infarcts within the left basal ganglia. Electronically signed by: Laz Mackey MD 01/25/2018 6:38 PM EDT
[2018-01-25] MEDS: ATORVASTATIN 40 MG TAB PO SCH (21:17)
[2018-01-26 05:59] VITALS: BP 139/60; PULSE 72; RESP 18; TEMP 98.3; O2SAT 93
[2018-01-26 06:01] VITALS: TEMP 98.3
[2018-01-26 06:03] VITALS: BP 112/88; PULSE 67; RESP 18; TEMP 98; O2SAT 94
[2018-01-26 06:43] VITALS: BP 112/58; PULSE 67; RESP 18; TEMP 98; O2SAT 94
[2018-01-26 09:59] LABS: HEMOGLOBIN A1C 5.6 % (4.3-6.0)
--- NOTE | 2018-01-26 11:23 | HHI.PYPN ---
Subjective Remarks Patient was seen and case discussed with nursing. Patient is quite irritable with his roommate calling him various slurs. No outbursts compliant with medications. Mental Status Examination Appearance: Disheveled Consciousness: Alert Orientation: Person Motor Activity: Other (Remained in bed) Speech: Unremarkable Language: Adequate Fund of Knowledge: Poor (Unable to assess) Attention and Concentration: Inadequate Memory: Unremarkable (Unable to assess) Mood: Angry, Oppositional, Irritable Affect: Irritable Thought Process & Associations: Intact Thought Content: Other (Negativistic) Hallucination Type: None Delusion Type: None Suicidal Ideation: No Suicidal Plan: No Suicidal Intention: No Homicidal Ideation: No Homicidal Plan: No Homicidal Intention: No Insight: Poor Judgment: Poor Results Vitals/IOs Vital Signs Date Time Temp Pulse Resp B/P (MAP) Pulse Ox O2 Delivery O2 Flow Rate FiO2 01/26/18 06:43 98.0 67 18 112/58 (76) 94 01/24/18 06:46 Room Air Intake and Output 01/26/18 01/26/18 01/27/18 08:00 16:00 00:00 Intake Total 240 ml Balance 240 ml Assessment & Plan Problem List: (1) DEMENTIA IN OTH DISEASES CLASSD ELSWHR W BEHAVIORAL DISTURB ICD Codes: F02.81 - DEMENTIA IN OTH DISEASES CLASSD ELSWHR W BEHAVIORAL DISTURB (2) Dementia associated with alcoholism ICD Codes: F10.27 - Alcohol dependence with alcohol-induced persisting dementia (3) Dementia with behavioral disturbance ICD Codes: F03.91 - Unspecified dementia with behavioral disturbance Assessment & Plan Continue current treatment plan Justification for Cont. Inpt. Patient would decompensate in a less restrictive setting Problem Qualifiers (1) Dementia associated with alcoholism: Qualified Codes: F10.27 - Alcohol dependence with alcohol-induced persisting dementia Ashish Valladares DO Jan 26, 2018 11:23
--- NOTE | 2018-01-26 11:29 | HHI.PYPN ---
Subjective Remarks Please ignore the previous note. Patient's behavior has improved. He has not had any outbursts or agitation. Tolerating his medications well. Eating and sleeping well. He is apologetic for his behavior Mental Status Examination Appearance: Disheveled Consciousness: Alert Orientation: Person Motor Activity: Other (Remained in bed) Speech: Unremarkable Language: Adequate Fund of Knowledge: Poor (Unable to assess) Attention and Concentration: Inadequate Memory: Unremarkable (Unable to assess) Mood: Angry, Oppositional, Irritable Affect: Irritable Thought Process & Associations: Intact Thought Content: Other (Negativistic) Hallucination Type: None Delusion Type: None Suicidal Ideation: No Suicidal Plan: No Suicidal Intention: No Homicidal Ideation: No Homicidal Plan: No Homicidal Intention: No Insight: Poor Judgment: Poor Results Vitals/IOs Vital Signs Date Time Temp Pulse Resp B/P (MAP) Pulse Ox O2 Delivery O2 Flow Rate FiO2 01/26/18 06:43 98.0 67 18 112/58 (76) 94 01/24/18 06:46 Room Air Intake and Output 01/26/18 01/26/18 01/27/18 08:00 16:00 00:00 Intake Total 240 ml Balance 240 ml Assessment & Plan Problem List: (1) DEMENTIA IN OTH DISEASES CLASSD ELSWHR W BEHAVIORAL DISTURB ICD Codes: F02.81 - DEMENTIA IN OTH DISEASES CLASSD ELSWHR W BEHAVIORAL DISTURB (2) Dementia associated with alcoholism ICD Codes: F10.27 - Alcohol dependence with alcohol-induced persisting dementia (3) Dementia with behavioral disturbance ICD Codes: F03.91 - Unspecified dementia with behavioral disturbance Assessment & Plan Continue current treatment plan Justification for Cont. Inpt. Patient would decompensate in a less restrictive setting Problem Qualifiers (1) Dementia associated with alcoholism: Qualified Codes: F10.27 - Alcohol dependence with alcohol-induced persisting dementia Ashish Valladares DO Jan 26, 2018 11:29
[2018-01-26] MEDS: QUEtiapine FUMARATE 25 MG TAB PO SCH ×2 (12:46→21:52)
[2018-01-26] MEDS: ASPIRIN EC 81 MG TABEC PO SCH (12:46)
[2018-01-26] MEDS: QUEtiapine FUMARATE 100 MG TAB PO SCH ×2 (12:46→21:52)
[2018-01-26 15:15] VITALS: BP 142/79; PULSE 68; RESP 17; TEMP 98; O2SAT 99
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
[2018-01-26] MEDS: ATORVASTATIN 40 MG TAB PO SCH (21:53)
[2018-01-27 05:38] VITALS: BP 137/66; PULSE 58; RESP 15; TEMP 97.3; O2SAT 97
[2018-01-27] MEDS: ASPIRIN EC 81 MG TABEC PO SCH (09:22)
[2018-01-27] MEDS: QUEtiapine FUMARATE 100 MG TAB PO SCH ×2 (09:22→20:42)
[2018-01-27] MEDS: QUEtiapine FUMARATE 25 MG TAB PO SCH ×2 (09:22→20:42)
--- NOTE | 2018-01-27 14:47 | HHI.PYPN ---
Subjective Remarks Patient seen in his room with nurse Barbara, chart reviewed, patient compliant medication. Patient continues diffusely confused disoriented somewhat depressed with this. There is some isolating noted also. He has been no behavioral problem. For now continue treatment Review of Systems Except as stated in HPI: all other systems reviewed are Neg Mental Status Examination Appearance: Disheveled Consciousness: Alert Orientation: Person Motor Activity: Other (Remained in bed) Speech: Unremarkable Language: Adequate Fund of Knowledge: Poor (Unable to assess) Attention and Concentration: Inadequate Memory: Unremarkable (Unable to assess) Mood: Angry, Oppositional, Irritable Affect: Irritable Thought Process & Associations: Intact Thought Content: Other (Negativistic) Hallucination Type: None Delusion Type: None Suicidal Ideation: No Suicidal Plan: No Suicidal Intention: No Homicidal Ideation: No Homicidal Plan: No Homicidal Intention: No Insight: Poor Judgment: Poor Results Vitals/IOs Vital Signs Date Time Temp Pulse Resp B/P (MAP) Pulse Ox O2 Delivery O2 Flow Rate FiO2 01/27/18 05:38 97.3 58 15 137/66 (89) 97 01/24/18 06:46 Room Air Intake and Output 01/27/18 01/27/18 01/28/18 08:00 16:00 00:00 Intake Total 480 ml 600 ml Balance 480 ml 600 ml Assessment & Plan Problem List: (1) DEMENTIA IN OTH DISEASES CLASSD ELSWHR W BEHAVIORAL DISTURB ICD Codes: F02.81 - DEMENTIA IN OTH DISEASES CLASSD ELSWHR W BEHAVIORAL DISTURB (2) Dementia associated with alcoholism ICD Codes: F10.27 - Alcohol dependence with alcohol-induced persisting dementia (3) Dementia with behavioral disturbance ICD Codes: F03.91 - Unspecified dementia with behavioral disturbance Assessment & Plan Estimated LOS: days patient continues demented and confused for low behavioral problems, is compliant medication, for now continue treatment Justification for Cont. Inpt. At this time patient would decompensate if placed in a lower level of care Discharge Planning To be determined Problem Qualifiers (1) Dementia associated with alcoholism: Qualified Codes: F10.27 - Alcohol dependence with alcohol-induced persisting dementia James Camarena MD Jan 27, 2018 14:47
[2018-01-27] MEDS: ATORVASTATIN 40 MG TAB PO SCH (20:41)
[2018-01-28 06:58] VITALS: BP 128/60; PULSE 72; TEMP 97.6
[2018-01-28] MEDS: QUEtiapine FUMARATE 100 MG TAB PO SCH ×2 (08:14→21:10)
[2018-01-28] MEDS: QUEtiapine FUMARATE 25 MG TAB PO SCH ×2 (08:15→21:10)
[2018-01-28] MEDS: ASPIRIN EC 81 MG TABEC PO SCH (08:15)
--- NOTE | 2018-01-28 13:01 | HHI.PYPN ---
Subjective Remarks Patient seen in his room with nurse Barbara, and medical student Jia, chart review, patient sitting quietly in his room he is calm pleasant though continues diffusely confused. He has no behavioral problem. For now continue treatment Review of Systems Except as stated in HPI: all other systems reviewed are Neg Mental Status Examination Appearance: Disheveled Consciousness: Alert Orientation: Person Motor Activity: Other (Remained in bed) Speech: Unremarkable Language: Adequate Fund of Knowledge: Poor (Unable to assess) Attention and Concentration: Inadequate Memory: Unremarkable (Unable to assess) Mood: Angry, Oppositional, Irritable Affect: Irritable Thought Process & Associations: Intact Thought Content: Other (Negativistic) Hallucination Type: None Delusion Type: None Suicidal Ideation: No Suicidal Plan: No Suicidal Intention: No Homicidal Ideation: No Homicidal Plan: No Homicidal Intention: No Insight: Poor Judgment: Poor Results Vitals/IOs Vital Signs Date Time Temp Pulse Resp B/P (MAP) Pulse Ox O2 Delivery O2 Flow Rate FiO2 01/28/18 06:58 97.6 72 128/60 (82) 01/27/18 05:38 15 97 Assessment & Plan Problem List: (1) DEMENTIA IN OTH DISEASES CLASSD ELSWHR W BEHAVIORAL DISTURB ICD Codes: F02.81 - DEMENTIA IN OTH DISEASES CLASSD ELSWHR W BEHAVIORAL DISTURB (2) Dementia associated with alcoholism ICD Codes: F10.27 - Alcohol dependence with alcohol-induced persisting dementia (3) Dementia with behavioral disturbance ICD Codes: F03.91 - Unspecified dementia with behavioral disturbance Assessment & Plan Estimated LOS: days patient continues no significant behavioral problems but diffusely confused and disoriented. Justification for Cont. Inpt. At this time patient would decompensate if place a lower level of care Discharge Planning To be determined Problem Qualifiers (1) Dementia associated with alcoholism: Qualified Codes: F10.27 - Alcohol dependence with alcohol-induced persisting dementia James Camarena MD Jan 28, 2018 13:01
[2018-01-28] MEDS: ATORVASTATIN 40 MG TAB PO SCH (21:10)
[2018-01-29 06:00] VITALS: BP 130/60; PULSE 62; RESP 16; TEMP 97.9; O2SAT 96
[2018-01-29] MEDS: ASPIRIN EC 81 MG TABEC PO SCH (08:27)
[2018-01-29] MEDS: QUEtiapine FUMARATE 25 MG TAB PO SCH ×2 (08:27→21:10)
[2018-01-29] MEDS: QUEtiapine FUMARATE 100 MG TAB PO SCH ×2 (08:27→21:10)
--- NOTE | 2018-01-29 14:33 | HHI.PYPN ---
Subjective Remarks Patient seen in his room with nurse jeison, chart reviewed, patient calm pleasantly confused no behavioral problems. Placement remains problematic Review of Systems Except as stated in HPI: all other systems reviewed are Neg Mental Status Examination Appearance: Disheveled Consciousness: Alert Orientation: Person Motor Activity: Other (Remained in bed) Speech: Unremarkable Language: Adequate Fund of Knowledge: Poor (Unable to assess) Attention and Concentration: Inadequate Memory: Unremarkable (Unable to assess) Mood: Angry, Oppositional, Irritable Affect: Irritable Thought Process & Associations: Intact Thought Content: Other (Negativistic) Hallucination Type: None Delusion Type: None Suicidal Ideation: No Suicidal Plan: No Suicidal Intention: No Homicidal Ideation: No Homicidal Plan: No Homicidal Intention: No Insight: Poor Judgment: Poor Results Vitals/IOs Vital Signs Date Time Temp Pulse Resp B/P (MAP) Pulse Ox O2 Delivery O2 Flow Rate FiO2 01/29/18 06:00 97.9 62 16 130/60 (83) 96 Intake and Output 01/29/18 01/29/18 01/30/18 08:00 16:00 00:00 Intake Total 480 ml 240 ml Balance 480 ml 240 ml Assessment & Plan Problem List: (1) DEMENTIA IN OTH DISEASES CLASSD ELSWHR W BEHAVIORAL DISTURB ICD Codes: F02.81 - DEMENTIA IN OTH DISEASES CLASSD ELSWHR W BEHAVIORAL DISTURB (2) Dementia associated with alcoholism ICD Codes: F10.27 - Alcohol dependence with alcohol-induced persisting dementia (3) Dementia with behavioral disturbance ICD Codes: F03.91 - Unspecified dementia with behavioral disturbance Assessment & Plan Estimated LOS: days patient continues diffusely confused and demented the low behavioral problems, compliant medications, Justification for Cont. Inpt. At this time patient would decompensate the place to the lower level of care Discharge Planning To be determined Problem Qualifiers (1) Dementia associated with alcoholism: Qualified Codes: F10.27 - Alcohol dependence with alcohol-induced persisting dementia James Camarena MD Jan 29, 2018 14:33
[2018-01-29 17:58] VITALS: BP 116/60; PULSE 82; RESP 16; O2SAT 94
[2018-01-29] MEDS: ATORVASTATIN 40 MG TAB PO SCH (21:10)
[2018-01-30 06:39] VITALS: BP 102/55; PULSE 83; RESP 19; TEMP 97.3; O2SAT 94
[2018-01-30] MEDS: QUEtiapine FUMARATE 25 MG TAB PO SCH ×2 (08:04→20:57)
[2018-01-30] MEDS: QUEtiapine FUMARATE 100 MG TAB PO SCH ×2 (08:04→20:57)
[2018-01-30] MEDS: ASPIRIN EC 81 MG TABEC PO SCH (08:04)
--- NOTE | 2018-01-30 13:12 | HHI.PYPN ---
Subjective Remarks Patient is seen [place] [address] with [facility], patient case continued with healthcare surrogate appointed, patient is diffuse confusion disorientation was evident with his conversation with the drugs that he was calm and pleasant with her. Patient complaint medications. He is showing no significant behavioral problems. For now continue treatment Review of Systems Except as stated in HPI: all other systems reviewed are Neg Mental Status Examination Appearance: Disheveled Consciousness: Alert Orientation: Person Motor Activity: Other (Remained in bed) Speech: Unremarkable Language: Adequate Fund of Knowledge: Poor (Unable to assess) Attention and Concentration: Inadequate Memory: Unremarkable (Unable to assess) Mood: Angry, Oppositional, Irritable Affect: Irritable Thought Process & Associations: Intact Thought Content: Other (Negativistic) Hallucination Type: None Delusion Type: None Suicidal Ideation: No Suicidal Plan: No Suicidal Intention: No Homicidal Ideation: No Homicidal Plan: No Homicidal Intention: No Insight: Poor Judgment: Poor Results Vitals/IOs Vital Signs Date Time Temp Pulse Resp B/P (MAP) Pulse Ox O2 Delivery O2 Flow Rate FiO2 01/30/18 06:39 97.3 83 19 102/55 (71) 94 Assessment & Plan Problem List: (1) DEMENTIA IN OTH DISEASES CLASSD ELSWHR W BEHAVIORAL DISTURB ICD Codes: F02.81 - DEMENTIA IN OTH DISEASES CLASSD ELSWHR W BEHAVIORAL DISTURB (2) Dementia associated with alcoholism ICD Codes: F10.27 - Alcohol dependence with alcohol-induced persisting dementia (3) Dementia with behavioral disturbance ICD Codes: F03.91 - Unspecified dementia with behavioral disturbance Assessment & Plan Estimated LOS: days patient continues diffusely confused disoriented demented, he is compliant medications, no behavior problems Justification for Cont. Inpt. At this time patient would decompensate a place to the lower level of care Discharge Planning To be determined Problem Qualifiers (1) Dementia associated with alcoholism: Qualified Codes: F10.27 - Alcohol dependence with alcohol-induced persisting dementia James Camarena MD Jan 30, 2018 13:12
[2018-01-30 18:00] VITALS: BP 115/68; PULSE 80; RESP 18; TEMP 98.3; O2SAT 94
[2018-01-30 18:37] VITALS: BP 140/76; PULSE 70; RESP 17; TEMP 97.7; O2SAT 96
[2018-01-30] MEDS: ATORVASTATIN 40 MG TAB PO SCH (20:57)
[2018-01-31 06:16] VITALS: BP 130/81; PULSE 60; RESP 16; TEMP 97.6; O2SAT 95
[2018-01-31] MEDS: QUEtiapine FUMARATE 100 MG TAB PO SCH ×2 (09:00→20:58)
[2018-01-31] MEDS: QUEtiapine FUMARATE 25 MG TAB PO SCH ×2 (09:00→20:58)
[2018-01-31] MEDS: ASPIRIN EC 81 MG TABEC PO SCH (09:00)
--- NOTE | 2018-01-31 11:51 | HHI.PYPN ---
Subjective Remarks Patient seen in his room with floor staff, and medical student [place], chart reviewed, patient compliant with medications. Patient continues no behavioral problems, there is some isolation noted with him, his continues diffusely confused and disoriented but redirectable. Review of Systems Except as stated in HPI: all other systems reviewed are Neg Mental Status Examination Appearance: Disheveled Consciousness: Alert Orientation: Person Motor Activity: Other (Remained in bed) Speech: Unremarkable Language: Adequate Fund of Knowledge: Poor (Unable to assess) Attention and Concentration: Inadequate Memory: Unremarkable (Unable to assess) Mood: Angry, Oppositional, Irritable Affect: Irritable Thought Process & Associations: Intact Thought Content: Other (Negativistic) Hallucination Type: None Delusion Type: None Suicidal Ideation: No Suicidal Plan: No Suicidal Intention: No Homicidal Ideation: No Homicidal Plan: No Homicidal Intention: No Insight: Poor Judgment: Poor Results Vitals/IOs Vital Signs Date Time Temp Pulse Resp B/P (MAP) Pulse Ox O2 Delivery O2 Flow Rate FiO2 01/31/18 06:16 97.6 60 16 130/81 (97) 95 Intake and Output 01/31/18 01/31/18 02/01/18 08:00 16:00 00:00 Intake Total 0 ml Balance 0 ml Assessment & Plan Problem List: (1) DEMENTIA IN OTH DISEASES CLASSD ELSWHR W BEHAVIORAL DISTURB ICD Codes: F02.81 - DEMENTIA IN OTH DISEASES CLASSD ELSWHR W BEHAVIORAL DISTURB (2) Dementia associated with alcoholism ICD Codes: F10.27 - Alcohol dependence with alcohol-induced persisting dementia (3) Dementia with behavioral disturbance ICD Codes: F03.91 - Unspecified dementia with behavioral disturbance Assessment & Plan Estimated LOS: days patient continues diffusely confused and disoriented though no significant behavioral problems, compliant medications. Justification for Cont. Inpt. At this time patient would decompensate a place to the lower level of care Discharge Planning To be determined Problem Qualifiers (1) Dementia associated with alcoholism: Qualified Codes: F10.27 - Alcohol dependence with alcohol-induced persisting dementia James Camarena MD Jan 31, 2018 11:51
[2018-01-31 17:59] VITALS: BP 130/79; PULSE 66; RESP 16; TEMP 98.7; O2SAT 93
[2018-01-31] MEDS: ATORVASTATIN 40 MG TAB PO SCH (20:58)
[2018-02-01 06:00] VITALS: BP 107/66; PULSE 67; RESP 18; TEMP 97.3; O2SAT 93
[2018-02-01] MEDS: QUEtiapine FUMARATE 100 MG TAB PO SCH ×2 (10:02→20:18)
[2018-02-01] MEDS: ASPIRIN EC 81 MG TABEC PO SCH (10:03)
[2018-02-01] MEDS: QUEtiapine FUMARATE 25 MG TAB PO SCH ×2 (10:03→20:18)
--- NOTE | 2018-02-01 14:57 | HHI.PYPN ---
Subjective Remarks Pt seen and discussed with staff. Chart reviewed. He has been isolative on unit , but today with staff encouragement and coaxing, he did get out of bed and has spent time in day room. No aggression or agitation. Yesterday he was resistant to medications and care and required staff encouragement per nurse, but today he has been taking all medications and cooperating with care. No SI/HI Mental Status Examination Appearance: Disheveled Consciousness: Alert Orientation: Person Motor Activity: Other (Remained in bed) Speech: Unremarkable Language: Adequate Fund of Knowledge: Poor (Unable to assess) Attention and Concentration: Inadequate Memory: Unremarkable (Unable to assess) Mood: Irritable (mild) Affect: Irritable Thought Process & Associations: Intact Thought Content: Other (Negativistic) Hallucination Type: None Delusion Type: None Suicidal Ideation: No Suicidal Plan: No Suicidal Intention: No Homicidal Ideation: No Homicidal Plan: No Homicidal Intention: No Insight: Poor Judgment: Poor Results Vitals/IOs Vital Signs Date Time Temp Pulse Resp B/P (MAP) Pulse Ox O2 Delivery O2 Flow Rate FiO2 02/01/18 06:00 97.3 67 18 107/66 (80) 93 Intake and Output 02/01/18 02/01/18 02/02/18 08:00 16:00 00:00 Intake Total 120 ml Balance 120 ml Assessment & Plan Problem List: (1) DEMENTIA IN OTH DISEASES CLASSD ELSWHR W BEHAVIORAL DISTURB ICD Codes: F02.81 - DEMENTIA IN OTH DISEASES CLASSD ELSWHR W BEHAVIORAL DISTURB (2) Dementia associated with alcoholism ICD Codes: F10.27 - Alcohol dependence with alcohol-induced persisting dementia (3) Dementia with behavioral disturbance ICD Codes: F03.91 - Unspecified dementia with behavioral disturbance Assessment & Plan Pt improving. Continue current tx plan. Estimated LOS: days Justification for Cont. Inpt. risk of decompensation Problem Qualifiers (1) Dementia associated with alcoholism: Qualified Codes: F10.27 - Alcohol dependence with alcohol-induced persisting dementia Keisha Frausto MD Feb 01, 2018 14:57
[2018-02-01 17:50] VITALS: BP 110/74; PULSE 69; RESP 20; TEMP 97.8; O2SAT 98
[2018-02-01] MEDS: ATORVASTATIN 40 MG TAB PO SCH (20:18)
[2018-02-02 06:14] VITALS: BP 125/66; PULSE 64; RESP 15; TEMP 98; O2SAT 93
[2018-02-02] MEDS: QUEtiapine FUMARATE 25 MG TAB PO SCH ×2 (09:00→20:45)
[2018-02-02] MEDS: QUEtiapine FUMARATE 100 MG TAB PO SCH ×2 (09:00→20:45)
[2018-02-02] MEDS: ASPIRIN EC 81 MG TABEC PO SCH (09:00)
--- NOTE | 2018-02-02 11:24 | HHI.PYPN ---
Subjective Remarks Pt seen and discussed with staff. He is compliant with medications and care. He has been more seclusive today only coming out for meals. He slept well and has not been aggressive. Mental Status Examination Appearance: Appropriate Consciousness: Alert Orientation: Person Motor Activity: Other (Remained in bed) Speech: Unremarkable Language: Adequate Fund of Knowledge: Poor (Unable to assess) Attention and Concentration: Inadequate Memory: Unremarkable (Unable to assess) Mood: Irritable (mild) Affect: Irritable Thought Process & Associations: Intact Thought Content: Other (Negativistic) Hallucination Type: None Delusion Type: None Suicidal Ideation: No Suicidal Plan: No Suicidal Intention: No Homicidal Ideation: No Homicidal Plan: No Homicidal Intention: No Insight: Poor Judgment: Poor Results Vitals/IOs Vital Signs Date Time Temp Pulse Resp B/P (MAP) Pulse Ox O2 Delivery O2 Flow Rate FiO2 02/02/18 06:14 98.0 64 15 125/66 (85) 93 Assessment & Plan Problem List: (1) DEMENTIA IN OTH DISEASES CLASSD ELSWHR W BEHAVIORAL DISTURB ICD Codes: F02.81 - DEMENTIA IN OTH DISEASES CLASSD ELSWHR W BEHAVIORAL DISTURB (2) Dementia associated with alcoholism ICD Codes: F10.27 - Alcohol dependence with alcohol-induced persisting dementia (3) Dementia with behavioral disturbance ICD Codes: F03.91 - Unspecified dementia with behavioral disturbance Assessment & Plan Continue current tx plan. Estimated LOS: days Justification for Cont. Inpt. risk of decompensation Problem Qualifiers (1) Dementia associated with alcoholism: Qualified Codes: F10.27 - Alcohol dependence with alcohol-induced persisting dementia Keisha Frausto MD Feb 02, 2018 11:24
[2018-02-02 17:38] VITALS: BP 128/79; PULSE 83; RESP 18; O2SAT 97
[2018-02-02] MEDS: ATORVASTATIN 40 MG TAB PO SCH (20:45)
[2018-02-03 06:18] VITALS: BP 117/58; PULSE 55; RESP 17; TEMP 98.2; O2SAT 95
[2018-02-03] MEDS: ASPIRIN EC 81 MG TABEC PO SCH (08:49)
[2018-02-03] MEDS: QUEtiapine FUMARATE 25 MG TAB PO SCH ×2 (08:49→20:16)
[2018-02-03] MEDS: QUEtiapine FUMARATE 100 MG TAB PO SCH ×2 (08:49→20:16)
--- NOTE | 2018-02-03 14:31 | HHI.PYPN ---
Subjective Remarks Patient seen in his room with medical student dominga, nurse Salvador, chart reviewed, patient compliant medication. Patient continues to isolate there is no behavior problems, continues diffusely confused and disoriented, for now continue treatment Review of Systems Except as stated in HPI: all other systems reviewed are Neg Mental Status Examination Appearance: Appropriate Consciousness: Alert Orientation: Person Motor Activity: Other (Remained in bed) Speech: Unremarkable Language: Adequate Fund of Knowledge: Poor (Unable to assess) Attention and Concentration: Inadequate Memory: Unremarkable (Unable to assess) Mood: Irritable (mild) Affect: Irritable Thought Process & Associations: Intact Thought Content: Other (Negativistic) Hallucination Type: None Delusion Type: None Suicidal Ideation: No Suicidal Plan: No Suicidal Intention: No Homicidal Ideation: No Homicidal Plan: No Homicidal Intention: No Insight: Poor Judgment: Poor Results Vitals/IOs Vital Signs Date Time Temp Pulse Resp B/P (MAP) Pulse Ox O2 Delivery O2 Flow Rate FiO2 02/03/18 06:18 98.2 55 17 117/58 (77) 95 Intake and Output 02/03/18 02/03/18 02/04/18 08:00 16:00 00:00 Intake Total 240 ml 480 ml Balance 240 ml 480 ml Assessment & Plan Problem List: (1) DEMENTIA IN OTH DISEASES CLASSD ELSWHR W BEHAVIORAL DISTURB ICD Codes: F02.81 - DEMENTIA IN OTH DISEASES CLASSD ELSWHR W BEHAVIORAL DISTURB (2) Dementia associated with alcoholism ICD Codes: F10.27 - Alcohol dependence with alcohol-induced persisting dementia (3) Dementia with behavioral disturbance ICD Codes: F03.91 - Unspecified dementia with behavioral disturbance Assessment & Plan Estimated LOS: days patient continues diffusely demented and confused the low behavioral problems. Placement remains somewhat problematic Justification for Cont. Inpt. At this time patient would decompensate if not placed in an appropriate level of care Discharge Planning To be determined Problem Qualifiers (1) Dementia associated with alcoholism: Qualified Codes: F10.27 - Alcohol dependence with alcohol-induced persisting dementia James Camarena MD Feb 03, 2018 14:31
--- NOTE | 2018-02-03 15:30 | PD.TTN ---
Patient Problems 1. Discharge planning 2. Medication compliance 3. Knowledge deficit 4. Lack of coping skills Progress Toward Goals Provider Present: Dr. Cyndi Camarena Provider Input: 02/03/18 pt is no behavioral issue and appears stable, needs a safe discharge Nurse(s) Input: 02/03/18 Madeleine remains seclusive to room, does not want to eat with others/eats in his room but is pleasant and at times sarcastic and confused Psychiatric Counselors Present: Araseli Hernandez LCSW Psych Therapist Input: 02/03/18 referred patient to [place] with Dementia care units, presented him to [facility] and [facility] today- both want him allowing son to decide which one so he can be transferred to [place] closer to son in future Group Spec/RT/OT/ORTEGA Present: Minna Atwood, KARLEY Group Spec/RT/OT/ORTEGA Input: 02/03/18 does not attend Documentation Teaching Recipient: Patient DreraulitoAraseli CHUN Feb 03, 2018 15:30
[2018-02-03 17:32] VITALS: BP 140/56; PULSE 82; RESP 17; TEMP 97.3; O2SAT 93
[2018-02-03] MEDS: ATORVASTATIN 40 MG TAB PO SCH (20:15)
[2018-02-04 07:02] VITALS: BP 124/60; PULSE 71; RESP 18; TEMP 98; O2SAT 95
[2018-02-04] MEDS: ASPIRIN EC 81 MG TABEC PO SCH (08:40)
[2018-02-04] MEDS: QUEtiapine FUMARATE 100 MG TAB PO SCH (08:40)
[2018-02-04] MEDS: QUEtiapine FUMARATE 25 MG TAB PO SCH (08:40)
[2018-02-04] MEDS ORDERED: SERO25TA PO (10:53)
[2018-02-04] MEDS ORDERED: ATOR40TA16 PO (10:53)
[2018-02-04] MEDS ORDERED: QUET1TAB8 PO (10:53)
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
== END 2018-02-04 14:40 | DRG 897 ==
LOC: NEPJ 13:31 → NEDA 01-24 11:06 → H250 01-24 11:20
PROVIDERS: ADMIT Psychiatry & Neurology Psychiatry; ATTEND Psychiatry & Neurology Psychiatry
DX: F10.27 Alcohol dependence with alcohol-induced persisting dementia (principal); F02.81 Dementia in other diseases classified elsewhere, unspecified severity, with behavioral disturbance; I48.91 Unspecified atrial fibrillation; I69.320 Aphasia following cerebral infarction; I10 Essential (primary) hypertension; F41.9 Anxiety disorder, unspecified; J44.9 Chronic obstructive pulmonary disease, unspecified; Z87.891 Personal history of nicotine dependence; E78.5 Hyperlipidemia, unspecified
CPT/HCPCS: 70450; 80048; 80053; 80061; 80307; 83036; 84443; 85025; 93005; 99285